=== PATIENT | female | born 1985 | race Caucasian/White ===

== ENCOUNTER 2019-09-05 00:15 | Outpatient (CLI) | payer OTHER, SELFPAY ==
[2019-09-05 16:10] LABS: SARS-CoV-2 RNA PCR Negative
== END 2019-09-05 00:16 | disposition home or self-care (01) ==
LOC: ANHCOVIDDT 00:15
PROVIDERS: PCP Family Medicine; Visit Provider Obstetrics & Gynecology
DX: Z01.818 Encounter for other preprocedural examination (principal); Z11.59 Encounter for screening for other viral diseases
CPT/HCPCS: 87635; C9803; U0003

== ENCOUNTER 2019-09-07 01:35 | Day surgery (SDC) | payer OTHER, SELFPAY ==
[2019-08-29 16:38] VITALS: BMI 26.4
[2019-09-07] VITALS (8 sets, daily range): BP systolic 101–119; BP diastolic 62–76; PULSE 59–88; RESP 12–17; TEMP 36.1–36.6; O2SAT 100
[2019-09-07] MEDS: LACTATED RINGERS 1,000 ML 30 ML IV CONT ×2 (10:00→13:19)
--- NOTE | 2019-09-07 10:26 | WPDANESEPP ---
Anes - Eval Pre Procedure Procedure: Operation Date: 09/07/19 12:00 Proposed Procedures p Laparoscopic Bilateral Tubal Sterilization with Fallopian Rings - Tom Son MD s Hysteroscopy Dilation and Curettage, Novasure Ablation - Tom Son MD Date/Time: 09/07/19 10:26 Pre Op Diagnosis: irreg bleeding, desires sterilization Patient Data Age: 34 Gender: F Height: 5 ft 3 in Weight: 66.4 kg Last Vital Signs Temp 97.8 F 09/07/19 10:16 Pulse 67 09/07/19 10:16 Resp 16 09/07/19 10:16 BP 108/68 09/07/19 10:16 Pulse Ox 100 09/07/19 10:16 Allergies Allergy/AdvReac Type Severity Reaction Status Date / Time poison valentina extract Allergy Intermediate RASH,SWELLI Verified 09/07/19 09:45 NG latex Allergy Unknown local Verified 09/07/19 09:45 irritation BEE STINGS Allergy Severe DIFFICULTY Uncoded 09/07/19 09:45 BREATHING Home Medications Medication Instructions Recorded Confirmed Type Stool Softener 50 mg PO DAILY #30 cap 04/03/19 09/07/19 Rx melatonin 5 mg PO HS PRN 08/29/19 09/07/19 History phentermine 37.5 mg PO DAILY 08/29/19 09/07/19 History Patient hx anesthesia problems: none Family hx anesthesia problems: none PMFSH Past Medical History Medical History Atopic dermatitis Surgical History Surgical History (Updated 09/07/19 @ 10:27 by Ady Wynn CRNA) Hx of LASIK Family History Family History Grandparent Diabetes mellitus Family history of cardiovascular disease Father Family history of multiple sclerosis Social History Social History Smoking status: Never smoker Alcohol intake: never Substance use: never Gender identity (if verbalized by the patient): Female Spiritual care concerns: No Exam Day of Procedure 09/07/19 10:26 Patient weight: normal Heart: regular rate and rhythm Lungs: clear to auscultation Airway: Mallampati scale class 1 Neurological: alert and oriented
--- NOTE | 2019-09-07 11:16 | SUR.PREOP ---
Resting without needs or complaints.
--- NOTE | 2019-09-07 11:20 | WPDANESEFPP ---
Anes - Eval Final PreProcedure Day of Procedure 09/07/19 11:20 Patient weight: overweight Heart: regular rate and rhythm Lungs: clear to auscultation Airway: Mallampati scale class 1 Neurological: alert and oriented Last oral intake: >/= 8 hours ASA classification: II Emergent: no Anesthetic plan: proceed Anesthesia type and monitoring: general ETT and standard monitoring Informed Consent: The patient's anesthetic plan and its attendant risks and benefits were discussed with the patient/family/POA. Questions were solicited and answers provided to the satisfaction of the patient/family/POA.
--- NOTE | 2019-09-07 11:21 | PM.IMHP ---
H&P: HPI History of Present Illness Chief complaint: irreg bleeding, desires sterilization Narrative: 34 y/o with heavy menses. She desires permanent contraception and desires surgical management of her problems. Review of Systems Review of Systems: All systems reviewed & are unremarkable except as noted in HPI and below PMFSH Past Medical History Medical History Atopic dermatitis Surgical History Surgical History Hx of LASIK Family History Family History Grandparent Diabetes mellitus Family history of cardiovascular disease Father Family history of multiple sclerosis Social History Social History Smoking status: Never smoker Alcohol intake: never Substance use: never Gender identity (if verbalized by the patient): Female Spiritual care concerns: No Meds Home Medications and Allergies Home Medications Medication Instructions Recorded Confirmed Type Stool Softener 50 mg PO DAILY #30 cap 04/03/19 09/07/19 Rx melatonin 5 mg PO HS PRN 08/29/19 09/07/19 History phentermine 37.5 mg PO DAILY 08/29/19 09/07/19 History Allergies Allergy/AdvReac Type Severity Reaction Status Date / Time poison valentina extract Allergy Intermediate RASH,SWELLI Verified 09/07/19 09:45 NG latex Allergy Unknown local Verified 09/07/19 09:45 irritation BEE STINGS Allergy Severe DIFFICULTY Uncoded 09/07/19 09:45 BREATHING Vital Signs Vital Signs - 24 hr 09/07/19 10:16 Temperature 36.6 C Pulse Rate 67 Respiratory Rate 16 Blood Pressure 108/68 Pulse Oximetry 100 Exam Const: Orientation/consciousness: patient oriented x3 Other: Well-developed, well-nourished female in no acute distress. Neck: Thyroid: thyroid normal Lymphatic: no lymphadenopathy noted (in neck, axilla or inguinal nodes) Resp: Effort & Inspection: normal respiratory effort Auscultation: clear to auscultation bilaterally Cardio: Rate: regular rate Rhythm: regular rhythm Heart sounds: S1 normal heart sound present and S2 normal heart sound present GI: Other: ABD: Soft, nontender, nondistended. No guarding or rebound tenderness. No hepatosplenomegaly. : General: Yes no CVA tenderness Other: External genitalia: normal female hair distribution, without lesion. Urethral meatus: no lesion, non prolapsed. Bladder: no mass, nontender Vagina: well-estrogenized, without lesion or discharge. No cystocele or rectocele. Cervix: no lesion or discharge. Uterus: small, anteverted, freely mobile, nontender Adnexa: no mass or tenderness. Anus/perineum: no lesions, nontender Back/Spine/Pelvis: Back: no CVA tenderness Skin: General skin exam: normal color and no rashes or lesions noted Neuro: General: patient oriented x3 Extrem: Other: Extremities: nontender with no edema Psych: Mental Status: mental status grossly normal Affect: normal affect Assessment and Plan Assessment and plan (1) Menorrhagia: Code(s): N92.0 - Excessive and frequent menstruation with regular cycle Status: Acute Assessment and Plan: I have offered her medical as well as surgical options to treat her problems. She does not desire any future childbearing. She understands there are temporary methods of contraception available to her. She understands that there are nonsurgical options as well as surgical options. She understands that tubal ligation will render her permanently sterile. She understands that there is a failure rate associated with tubal ligation, as well as an inherent ectopic gestation risk. Furthermore, she understands risks of surgery to include risks of anesthesia, risks of pain, infection, bleeding, blood products, thromboembolic phenomena and damage to adjacent structures such as bowel, bladder, u
--- NOTE | 2019-09-07 11:28 | SUR.PREOP ---
Up to bathroom.
[2019-09-07] MEDS: KETOROLAC 30 MG/ML VIAL (*BKC) IV PUSH (13:13)
--- NOTE | 2019-09-07 13:13 | PM.PROC ---
Procedure Note - Detailed Date of procedure: 09/07/19 Pre-op diagnosis: irreg bleeding, desires sterilization Menorrhagia Desired sterility Post-op diagnosis: same Procedure performed: Laparoscopic bilateral tubal ligation Hysteroscopy D&C Endometrial ablation Description of procedure: The patient was taken to the operating room where she was prepared and draped in the usual sterile fashion in the dorsal lithotomy position. The bladder was drained with a red rubber catheter. A sterile speculum was placed into the vagina. The anterior lip of the cervix was grasped with single-tooth tenaculum. The acorn uterine manipulator was placed. The speculum was withdrawn. Gloves were changed and attention was turned to the abdomen. An infraumbilical skin incision was made with the scalpel. The abdomen was tented and a 5mm bladeless trocar was advanced under direct laparoscopic visualization. Pneumoperitoneum was administered using carbon dioxide gas. A survey of the pelvis and abdomen revealed the findings noted above. A 2nd 8mm skin incision was made in the midline above the symphysis pubis. The 8mm bladeless trocar was advanced under direct laparoscopic visualization. The Falope ring applicator was advanced. The right fallopian tube was identified by following it out to the fimbriated end. It was then grasped in the midportion and the Falope ring was applied. The device was reloaded. The left fallopian tube was similarly identified. However, the application was unsuccessful, as the tube appeared to be just a little dilated. Therefore, the Kleppinger forceps were advanced and a segment of the midportion of the left fallopian tube was completely fulgurated. Hemostasis was excellent. Two mL of 1% lidocaine was infiltrated into the serosa of the proximal tubes for postoperative anesthesia. The ports were withdrawn and the gas was allowed to escape. The skin incisions were reapproximated using interrupted sutures of 4 0 Vicryl. Dermaflex was applied externally. Attention was then redirected to the vagina, where the acorn manipulator was withdrawn. The speculum was reintroduced. Ten mL of 1% lidocaine was administered in a paracervical block. The cervix was then gently dilated using Hegar dilators until an 8 mm dilator could be passed. Hysteroscopy was performed using sterile saline as a distention medium. Findings are as noted above. Sharp curettage was then performed, and endometrial curettings were collected on a Telfa pad and passed off to be sent to pathology. Finally, the the Novasure device was advanced and endometrial ablation commenced without difficulty. The device was withdrawn and a second look was taken using the hysteroscope. Excellent coverage of the endometrial cavity was noted. The tenaculum was removed. Hemostasis was excellent. Sponge, lap, needle and instrument counts were correct. The patient was awakened and taken to the recovery room in stable condition. I was present and scrubbed through the entire procedure. Implants: Falope ring to the right Fallopian tube. Anesthesia: GETA and local (1% lidocaine) Surgeon: Tom Son MD Estimated blood loss (mL): 10 Drains: No Packing: No Pathology: yes (Endometrial curettings) Complications: None Condition: stable Disposition: PACU Findings: The right upper quadrant anatomy was unremarkable. The vermiform appendix was unremarkable. The right ovary demonstrated a small, simple appearing cyst. The left fallopian tube appeared to be just a little dilated. Otherwise, the uterus, tubes, ovaries, anterior and posterior cul-de-sac, bilateral round ligaments on bilateral uterosacral ligaments were unremarkable. The uterus sounded to a depth of 7.5cm with a cervical length of 3cm, giving a subtracted uterine cavity length of 4.5cm. The uterine cavity width was 4.4cm as measured by the NovaSure device. The endometrial cavity was unremarkable and both tubal ostia were easily seen.
--- NOTE | 2019-09-07 13:21 | SUR.OPER ---
Scottasure settings- Length- 4.5 Width- 4.4 Power- 109 Time- 90 seconds. 250 NS in, 200 NS out
[2019-09-07] MEDS: SCOPOLAMINE 1.5 MG PATCH TRANSDERM (13:41)
== END 2019-09-07 15:20 | disposition home or self-care (01) ==
PROVIDERS: PCP Family Medicine; Visit Provider Obstetrics & Gynecology
PROC: (CPT 58671; principal; 2019-09-07 12:00)
PROC: 0U5B8ZZ Destruction of Endometrium, Via Natural or Artificial Opening Endoscopic (ICD-10-PCS; CPT 58563; 2019-09-07 12:00)
DX: N92.0 Excessive and frequent menstruation with regular cycle (principal); Z30.2 Encounter for sterilization
CPT/HCPCS: 58670; 58563; 88305; A4264; A9270; J0330; J1100; J1885; J2250; J2405; J2704; J3010; J7120

== ENCOUNTER 2020-03-01 09:10 | Outpatient (NON) | payer OTHER, SELFPAY ==
[2020-03-01 12:24] LABS: Influenza Control Positive
== END 2020-03-01 09:11 ==
LOC: ANHCOVIDDT 09:11
PROVIDERS: PCP Family Medicine; Visit Provider Family Medicine
DX: R05 Cough (principal)
CPT/HCPCS: 87804

== ENCOUNTER 2020-05-25 00:35 | Day surgery (SDC) | payer OTHER, SELFPAY ==
[2020-05-21 13:36] VITALS: BMI 28.3
[2020-05-25] VITALS (7 sets, daily range): BP systolic 119–149; BP diastolic 64–89; PULSE 76–120; RESP 14–16; TEMP 36.2–36.5; O2SAT 100; BMI 28.2
[2020-05-25] MEDS: LACTATED RINGERS 1,000 ML 30 ML IV CONT ×2 (06:42→08:39)
--- NOTE | 2020-05-25 07:05 | WPDANESEPPF ---
Anes - Initial Pre Proc Eval Procedure: Operation Date: 05/25/20 07:30 Proposed Procedures p Bilateral Breast Augmentation - Fredo Hodgson MD Date/Time: 05/25/20 07:05 Surgeon: Fredo Hodgson MD Pre Op Diagnosis: Micromastia, Excess Adipose Tissue Patient Data Age: 35 Gender: F Height: 5 ft 3 in Weight: 72.2 kg Last Vital Signs Temp 97.2 F L 05/25/20 06:45 Pulse 76 05/25/20 06:45 Resp 16 05/25/20 06:45 BP 119/64 05/25/20 06:45 Pulse Ox 100 05/25/20 06:45 Allergies Allergy/AdvReac Type Severity Reaction Status Date / Time poison valentina extract AdvReac Intermediate RASH,SWELLI Verified 05/25/20 06:29 NG BEE STINGS Allergy Severe DIFFICULTY Uncoded 05/25/20 06:29 BREATHING Home Medications Medication Instructions Recorded Confirmed Type Stool Softener 50 mg PO DAILY #30 cap 04/03/19 05/21/20 Rx melatonin 5 mg PO HS 08/29/19 05/25/20 History linaclotide 72 mcg capsule 72 mcg PO DAILY 01/25/20 05/25/20 History carisoprodol 350 mg tablet 350 mg PO TID PRN #21 tablet 05/20/20 05/21/20 Rx oxycodone-acetaminophen 5 mg-325 1 tablet PO Q6H PRN #15 tablet 05/20/20 05/21/20 Rx mg tablet cetirizine [Zyrtec] 10 mg PO DAILY PRN 05/21/20 05/25/20 History epinephrine [EpiPen 2-Lázaro] 0.3 mg IM ONCE PRN 05/21/20 05/21/20 History ondansetron HCl [Zofran] 4 mg PO Q8H PRN 05/21/20 05/21/20 History Patient hx anesthesia problems: none Family hx anesthesia problems: none PMFSH Past Medical History Medical History Atopic dermatitis Surgical History Surgical History H/O tubal ligation 2020 History of in vitro fertilization Hx of LASIK Family History Family History Grandparent Diabetes mellitus Family history of cardiovascular disease Father Family history of multiple sclerosis Social History Social History Smoking status: Never smoker Second hand tobacco smoke exposure: No Alcohol intake: current Drinks per week: 5 Alcohol use details: BEER/MIXED DRINKS/WINE Substance use: never Living arrangements: with family Gender identity (if verbalized by the patient): Female Spiritual care concerns: No Agree to blood products: Yes Anes - Eval Final PreProcedure Day of Procedure 05/25/20 07:05 Patient weight: overweight Heart: regular rate and rhythm Lungs: clear to auscultation Airway: Mallampati scale class II Neurological: alert and oriented Last oral intake: >/= 8 hours ASA classification: II Emergent: no Anesthetic plan: proceed Anesthesia type and monitoring: general LMA and standard monitoring Informed Consent: The patient's anesthetic plan and its attendant risks and benefits were discussed with the patient/family/POA. Questions were solicited and answers provided to the satisfaction of the patient/family/POA.
--- NOTE | 2020-05-25 07:11 | WPDHPUPDATE1 ---
History and Physical Update Update Date/Time: 05/25/20 07:11 History and Physical has been reviewed, including an updated exam of the patient. There are NO changes in the patient's condition. Risks, benefits, and alternatives have been discussed and questions answered. Patient agrees to proceed with procedure.
--- NOTE | 2020-05-25 07:18 | P.OP_ITS ---
Procedure Note - Detailed Date of procedure: 05/25/20 Pre-op diagnosis: Micromastia, Excess Adipose Tissue Post-op diagnosis: same Procedure performed: Bilateral Augmentation Mammaplasty Description of procedure: She is here today for bilateral breast augmentation. Previously and again today the risks, benefits, alternatives were discussed in extensive detail. I wanted her to be very realistic about the risks involved as well as expectations. We discussed aftercare and what to monitor for. Made sure answered all of her questions to her satisfaction today and consent was obtained. Marked in the preoperative holding area with their verification. The patient was taken to the operating room placed supine on the operating table. Anesthesia was provided by anesthesiology. A surgical time-out was taken. We cleansed the skin and 1% lidocaine and 0.25% Marcaine with epinephrine was used anesthetize as a field block. She was prepped and draped in a standard sterile fashion. Tegaderm nipple Hickey were placed. A 15 blade used to make an incision along the inframammary fold. Dissection was continued at 45 degree angle until the chest wall as identified. On the right I elevated pre-pectoral in a dual plane 2 fashion. I incised the pectoralis major along its inferior border and completely released the inferior border leaving the medial border intact. I created a subpectoral pocket in the appropriate dimensions based on our preoperative planning for the implant. I then copiously irrigated with saline solution and verified a strict hemostasis. Next the use a triple antibiotic and Betadine containing solution to irrigate the pocket. I washed my gloves with the triple antibiotic and Betadine solution. We washed the implant immediately upon opening it with this solution and only opened it when we needed it. I used implant funnel and no-touch technique. The implant was introduced into the pocket using the funnel. Having verified positioning of the implant this was closed using 2-0 Vicryl followed by 3-0 Frontier cryl in a running subcuticular 4-0 Monocryl followed by tissue glue. Fluffs, Shane wrap, and surgical bra were placed. Patient was awoke and taken to PACU without difficulty. All instrument sponge counts were correct at the end of the case. Anesthesia: GLMA Surgeon: Fredo Hodgson MD Estimated blood loss (mL): 10 Drains: No Packing: No Pathology: none sent Complications: No immediate complications Condition: stable Disposition: PACU Findings: Bilateral Natrelle Inspira SoftTouch Breast Implants 445cc Right dual plane 2. REF# [id number] Left dual plane 1. REF# [id number]
[2020-05-25] MEDS: ceFAZolin 2 GM/D5W 50 ML 2 GM/50 ML BAG IVPB (07:28)
[2020-05-25] MEDS: LIDO 1%/EPINEPHRINE 1:100,000 50 ML VIAL 30 ML INFILTRATE (08:18)
[2020-05-25] MEDS: BUPIVACAINE/EPINEPHRINE 0.25% 50 ML VIAL 30 ML INFILTRATE (08:19)
[2020-05-25] MEDS: fentaNYL CITRATE INJ (*CRX) 100 MCG/2 ML VIAL 25 MCG IV PUSH ×3 (08:57→09:17)
[2020-05-25] MEDS: oxyCODONE HCL (*CRX) 5 MG TAB IR PO (09:52)
== END 2020-05-25 10:44 | disposition home or self-care (01) ==
PROVIDERS: PCP Family Medicine; Visit Provider Surgery Plastic and Reconstructive Surgery
PROC: (CPT 19325; principal; 2020-05-25 07:30)
DX: Z41.1 Encounter for cosmetic surgery (principal); N64.82 Hypoplasia of breast; E65 Localized adiposity
CPT/HCPCS: 19325; A9270; J0690; J1580; J2250; J2405; J2704; J3010; J7120

== ENCOUNTER 2024-10-27 12:11 | Outpatient (CLI) | payer OTHER, SELFPAY ==
--- OUTSIDE RECORDS SUMMARY | 2024-10-27 12:17 | XMS_ITS | Encounter Summary ---
Author Organization [facility] Address [address] [place] [address] Phone Care Team Providers Care Industrial Technician Name Role Phone Rosanne Crisostomo DO Primary Care Provider + Cira Snyder NP Primary Care Provider + [phone] Encounter Details Date Type Department Care Team (Late st Contact Info) Description 07/30/2022 Orders Only [facility] Scanning, Provider Social History Tobacco Use Types Packs/Day Years Used Date Smoking Tobacco: Never AUDIT-C Answer Date Recorded Q1: How often do you have a drink containing alc ohol? 2-4 times a month 07/05/2021 Average Number of Drinks Not on file 022 Q3: How often do you have si x or more drinks on one occasion? 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 Gender Identity Female 02/18/2021 7:30 AM HIGH SCHOOL COMPUTER SCIENCE TEACHER Sexual Orientation Straight 02/18/2021 7: 30 AM HIGH SCHOOL COMPUTER SCIENCE TEACHER documented as of this encounter Plan of Treatment Not on file documented as of this encounter Procedures Procedure Name Priority Date/Time Associated Diagnosis Comments SCAN - RADIOLOGY/IMAGING 07/30/2022 documented in this encounter Results * SCAN - RADIOLOGY/IMAGING (07/30/2022) Anatomical Region Laterality Modality Other us Provider Scanning Edited Result - Final documented in this encounter Visit Diagnoses Not on filedocumented in this encounter Care Teams Industrial Technician Relationship Specialty Start Date End Date Rosanne Crisostomo DO [address] [place] [id number] PCP - General Family Medicine 02/18/21 01/19/23 Cira Snyder NP [address] [place] [phone] PCP - General Nurse Practitioner 01/20/23 documented as of this encounter
--- OUTSIDE RECORDS SUMMARY | 2024-10-27 12:17 | XMS_ITS | Encounter Summary ---
Author Organization [facility] Address [facility] [place] [address] Care Team Providers Care Qa Automation Architect Name Role Phone Cira Snyder Primary Care Provider Encounter Details Date Type Department Care Team (Late st Contact Info) Description 08/09/2022 MyCLast 2 Leftt Message Enc [facility] Family & Internal Medicine [address] [phone] Cira Snyder FNP [address] [place] [address] [id number] Vitamin D Social History Tobacco Use Types Packs/Day Years Used Date Smoking Tobacco: Never Smokeless Tobacco: Never Alcohol Use Standard Drinks/Week Comments Yes 0 (1 standard drink = 0.6 oz pur e alcohol) occasionally PHQ-2 Answer Date Recorded Patient Health Questionnaire-2 Score 2 07/22/2022 Comments No Sex and Gender Information Value Date Recorded Sex Assigned at Female 06/15/2023 3:55 PM BOILER MECHANIC Legal Sex Female 4:16 PM CDT Gender Identity Female 06/15/2023 3:55 PM BOILER MECHANIC Sexual Orientation Straight 06/15/2023 3: 55 PM BOILER MECHANIC COVID-19 Exposure Response Date Recorded In the last 10 days, have orlando kay been in contact with someone who was confirmed or suspected to have Coronavirus/COVID-19? No / Unsure 08/05/2022 7:36 AM CDT documented as of this encounter Functional Status * RETIRED Are you deaf or do you have serious difficulty hearing Answer Date of Assessment Author Status No 09/28/2021 3:25 PM CDT Activ e * RETIRED Are you blind or do you have serious difficulty seeing, even when wearing glasses? Answer Date of Assessment Author Status No 09/28/2021 3:25 PM CDT Activ e * Do you have serious difficulty walking or climbing stairs? Answer Date of Assessment Author Status No 09/28/2021 3:25 PM CDT Destiny Bliss RN Active * Do you have difficulty dressing or bathing? Answer Date of Assessment Author Status No 09/28/2021 3:25 PM CDT Destiny Bliss RN Active * Because of a physical, mental, or emotional condition, do you have difficulty doing errands alone such as visiting a doctor's office or shopping? Answer Date of Assessment Author Status No 09/28/2021 3:25 PM CDT Destiny Bliss RN Active documented as of this encounter Mental Status * Because of a physical, mental, or emotional condition, do you have serious difficulty concentrating, remembering, or making decisions? Answer Entry Date Author Status No 09/28/2021 3:25 PM CDT Destiny Bliss RN Active documented in this encounter Plan of Treatment Upcoming Encounters Date Type Department Care Team (Late st Contact Info) Description 04/04/2025 9:00 AM BOILER MECHANIC Office Visit [facility] Family & Internal Medicine - [address] [phone] Cira Snyder FNP [address] [place] [phone] documented as of this encounter Goals Goal Patient Goal Type Associated Problems Recent Progress Patient-Stated? Author Health - patient able to perform ADLs independently General No Louise Schmitt RN documented as of this encounter Visit Diagnoses Not on filedocumented in this encounter Additional Health Concerns Infection Onset Date Last Indicated Resolved Time COVID-19 Rule Out 05/31/2023 05/31/2023 05/31/2023 3:14 AM BOILER MECHANIC COVID-19 Confirmed 05/31/2023 05/31/2023 12:32 AM CDT Assessment Noted Time PHQ-9 Depression Total Score: 10 023 4:01 PM CDT documented as of this encounter Care Teams Qa Automation Architect Relationship Specialty Start Date End Date Cira Snyder FNP [address] [place] [phone] PCP - General 07/19/22 documented as of this encounter
--- OUTSIDE RECORDS SUMMARY | 2024-10-27 12:17 | XMS_ITS | Encounter Summary ---
Author Organization [facility] Address [facility] [place] [address] Care Team Providers Care Rn Hematology Name Role Phone Cira Snyder Primary Care Provider Encounter Details Date Type Department Care Team (Latest Contact Info) Description 03/18/2024 TCD Pharmat Message Enc [facility] Family & Internal Medicine [address] [phone] Cira Snyder FNP [facility] [place] [address] Adderall & progesterone Social History Tobacco Use Types Packs/Day Years Used Date Smoking Tobacco: Never Smokeless Tobacco: Never Alcohol Use Standard Drinks/Week Comments Yes 5 (1 standard drink = 0.6 oz pur e alcohol) occasionally PHQ-2 Answer Date Recorded Patient Health Questionnaire-2 Score 0 07/24/2023 Comments No Sex and Gender Information Value Date Recorded Sex Assigned at Female 06/15/2023 3:55 PM IN STORE BANKER Legal Sex Female 4:16 PM CDT Gender Identity Female 06/15/2023 3:55 PM IN STORE BANKER Sexual Orientation Straight 06/15/2023 3: 55 PM IN STORE BANKER documented as of this encounter Functional Status [...] st Contact Info) Description 04/04/2025 9:00 AM IN STORE BANKER Office Visit [facility] Family & Internal Medicine [address] [phone] Cira Snyder FNP [address] [place] [phone] documented as of this encounter Goals Goal Patient Goal Type Associated Problems Recent Progress Patient-Stated? Author Health - patient able to perform ADLs independently General No Louise Schmitt RN documented as of this encounter Visit Diagnoses Not on filedocumented in this encounter Additional Health Concerns Assessment Noted Time PHQ-9 Depression Total Score: 7 06/25/19 24 11:20 AM CDT documented as of this encounter Care Teams Rn Hematology Relationship Specialty Start Date End Date Cira Snyder FNP [address] [place] [phone] PCP - General 07/19/22 documented as of this encounter
--- OUTSIDE RECORDS SUMMARY | 2024-10-27 12:17 | XMS_ITS | Encounter Summary ---
Author Organization [facility] Address [address] [place] [address] Phone Care Team Providers Care Bog Cutter Name Role Phone Rosanne Crisostomo DO Primary Care Provider + Cira Snyder NP Primary Care Provider [phone] Encounter Details Date Type Department Care Team (Late st Contact Info) Description 08/27/2020 Orders Only [facility] Scanning, Provider Social History Tobacco Use Types Packs/Day Years Used Date Smoking Tobacco: Never Assessed Comments Unknown Sex and Gender Information Value Date Recorded Sex Assigned at Not on file Legal Sex Female 9:08 PM SHIP CEILER Gender Identity Female 02/18/2021 7:30 AM SHIP CEILER Sexual Orientation Straight 02/18/2021 7: 30 AM SHIP CEILER documented as of this encounter Plan of Treatment Not on file documented as of this encounter Procedures Procedure Name Priority Date/Time Associated Diagnosis Comments SCAN - LABS 08/27/2020 documented in this encounter Results * SCAN - LABS (08/27/2020) us Provider Scanning Edited Result - Final documented in this encounter Visit Diagnoses Not on filedocumented in this encounter Care Teams Bog Cutter Relationship Specialty Start Date End Date Rosanne Crisostomo DO [address] [place] [place] [id number] PCP - General Family Medicine 02/18/21 01/19/23 Cira Snyder NP [address] [place] [address] PCP - General Nurse Practitioner 01/20/23 documented as of this encounter
--- OUTSIDE RECORDS SUMMARY | 2024-10-27 12:17 | XMS_ITS | Encounter Summary ---
Author Organization [facility] Address [address] [place] [address] Phone Care Team Providers Care Ophthalmic Technician Name Role Phone Rosanne Crisostomo DO Primary Care Provider + Cira Snyder NP Primary Care Provider + [phone] Encounter Details Date Type Department Care Team (Late st Contact Info) Description 12/09/2022 Orders Only [facility] Scanning, Provider Social [...] on file Legal Sex Female 9:08 PM VP OF DIGITAL MARKETING Gender Identity Female 02/18/2021 7:30 AM VP OF DIGITAL MARKETING Sexual Orientation Straight 02/18/2021 7: 30 AM VP OF DIGITAL MARKETING documented as of this encounter Plan of Treatment Not on file documented as of this encounter Procedures Procedure Name Priority Date/Time Associated Diagnosis Comments SCAN - LABS 12/09/2022 documented in this encounter Results * SCAN - LABS (12/09/2022) us Provider Scanning Final Result documented in this encounter Visit Diagnoses Not on filedocumented in this encounter Care Teams Ophthalmic Technician Relationship Specialty Start Date End Date Rosanne Crisostomo DO [facility] [place] [address] PCP - General Family Medicine 02/18/21 01/19/23 Cira Snyder NP [address] [place] [address] PCP - General Nurse Practitioner 01/20/23 documented as of this encounter
--- OUTSIDE RECORDS SUMMARY | 2024-10-27 12:17 | XMS_ITS | Encounter Summary ---
Author Organization [facility] Address [facility] [place] [address] Care Team Providers Care Furniture Crater Name Role Phone Arnie Parson DO Primary Care Provider Rosanne Crisostomo DO Primary Care Provider Cira Snyder Primary Care Provider [phone] Encounter Details Date Type Department Care Team (Latest Contact Info) Description 02/16/2018 Abstract [facility] Annabel Eason MD Social History Tobacco Use Types Packs/Day Years Used Date Smoking Tobacco: Never Assessed Comments Unknown Sex and Gender Information Value Date Recorded Sex Assigned at Female 06/15/2023 3:55 PM BRAND DEVELOPMENT MANAGER Legal Sex Female 4:16 PM CDT Gender Identity Female 06/15/2023 3:55 PM BRAND DEVELOPMENT MANAGER Sexual Orientation Straight 06/15/2023 3: 55 PM BRAND DEVELOPMENT MANAGER documented as of this encounter Plan of Treatment Upcoming Encounters Date Type Department Care Team (Late st Contact Info) Description 04/04/2025 9:00 AM BRAND DEVELOPMENT MANAGER Office Visit [facility] Family & Internal Medicine [address] [phone] Cira Snyder FNP [address] [place] [address] documented as of this encounter Visit Diagnoses Not on filedocumented in this encounter Additional Health Concerns Infection Onset Date Last Indicated Resolved Time COVID-19 Rule Out 05/31/2023 05/31/2023 05/31/2023 3:14 AM BRAND DEVELOPMENT MANAGER COVID-19 Confirmed 05/31/2023 05/31/2023 12:32 AM CDT documented as of this encounter Care Teams Furniture Crater Relationship Specialty Start Date End Date Arnie Parson DO PCP - General 03/17/14 04/12/21 Rosanne Crisostomo DO PCP - General FAMILY PRACTICE 04/13/21 07/18/22 Cira Snyder FNP [address] [place] [address] PCP - General 07/19/22 documented as of this encounter
--- OUTSIDE RECORDS SUMMARY | 2024-10-27 12:17 | XMS_ITS | Encounter Summary ---
Author Organization [facility] Facility Care Team Providers Care Plant Health Manager Name Role Phone Rosanne Crisostomo DO Primary Care Provider + Cira Snyder NP Primary Care Provider [phone] Encounter Details Date Type Department Care Team (Latest Contact Info) Description 01/29/2016 Orders Only [facility] ProviderBlake MD [address] [place] [address] Social History Tobacco Use Types Packs/Day Years Used Date Smoking Tobacco: Never Assessed Comments Unknown Sex and Gender Information Value Date Recorded Sex Assigned at Not on file Legal Sex Female 9:08 PM RECONDITIONER Gender Identity Female 02/18/2021 7:30 AM RECONDITIONER Sexual Orientation Straight 02/18/2021 7: 30 AM RECONDITIONER documented as of this encounter Plan of Treatment Not on file documented as of this encounter Procedures Procedure Name Priority Date/Time Associated Diagnosis Comments PROCEDURE - RESULT 01/29/2016 12 :00 AM CDT documented in this encounter Results * PROCEDURE - RESULT (01/29/2016 12:00 AM CDT) Narrative 01/29/2016 12:00 AM CDT Ordered by an unspecified provider. Historical Provider Final Res ult documented in this encounter Visit Diagnoses Not on filedocumented in this encounter Care Teams Plant Health Manager Relationship Specialty Start Date End Date Rosanne Crisostomo DO [address] [place] [id number] PCP - General Family Medicine 02/18/21 01/19/23 Cira Snyder NP [address] [place] [address] PCP - General Nurse Practitioner 01/20/23 documented as of this encounter
--- OUTSIDE RECORDS SUMMARY | 2024-10-27 12:17 | XMS_ITS | Encounter Summary ---
Author Organization [facility] Address [facility] [place] [address] Care Team Providers Care Roll Tender Name Role Phone Cira Snyder Primary Care Provider [phone] Encounter Details Date Type Department Care Team (Late st Contact Info) Description 07/22/2022 [email or web address] Message Enc [facility] Family & Internal Medicine [address] [phone] Cira Snyder FNP [address] [place] [phone] [place] Social History Tobacco Use Types Packs/Day Years Used Date Smoking Tobacco: Never Smokeless Tobacco: Never Alcohol Use Standard Drinks/Week Comments Yes 0 (1 standard drink = 0.6 oz pur e alcohol) occasionally PHQ-2 Answer Date Recorded Patient Health Questionnaire-2 Score 2 07/22/2022 Comments No Sex and Gender Information Value Date Recorded Sex Assigned at Female 06/15/2023 3:55 PM SSRS REPORT DEVELOPER Legal Sex Female 4:16 PM CDT Gender Identity Female 06/15/2023 3:55 PM SSRS REPORT DEVELOPER Sexual Orientation Straight 06/15/2023 3: 55 PM SSRS REPORT DEVELOPER COVID-19 Exposure Response Date Recorded In the last 10 days, have yo u been in contact with someone who was confirmed or suspected to have Coronavirus/COVID-19? No / Unsure 07/22/2022 2:04 PM CDT documented as of this encounter Functional [...] PM CDT Destiny Bliss RN Active * Over the past 2 weeks, how often have you been bothered by any of the following problems? Question Answer Date of Assessment Author Status Little interest or pleasure in doing things More than half the days 07/22/2022 4:01 PM CDT Cira Snyder FNP Active Feeling down, depressed, or hopeless Not at all 07/22/2022 4:01 PM CDT Cira Snyder FNP Active Patient Health Questionnaire-2 Score 2 07/22/2022 4:01 PM CDT Cira Snyder FNP Active * Question Answer Date of Assessment Author Status Trouble falling or staying asleep, or sleeping too much Nearly every day 07/22/2022 4:01 PM CDT Cira Snyder FNP Active Feeling tired or having little energy More than half the days 07/22/2022 4:01 PM CDT Cira Snyder FNP Active Poor appetite or overeating Not at all 07/22/2022 4:01 PM CDT Cira Snyder FNP Active Feeling bad about yourself - or that you are a failure or have let yourself or your family down Not at all 07/22/2022 4:01 PM YADIRAT Cira Snyder FNP Active Trouble concentrating on things, such as reading the newspaper or watching television Nearly every day 07/22/2022 4:01 PM YADIRAT Cira Snyder FNP Active Moving or speaking so slowly that other people could have noticed? Or the opposite - being so fidgety or restless that you have been moving around a lot more than usual. Not at all 07/22/2022 4:01 PM YADIRAT Cira Snyder FNP Active Thoughts that you would be better off or hurting yourself in some way Not at all 07/22/2022 4:01 PM YADIRAT Cira Snyder FNP Active Patient Health Questionnaire-9 Score 10 07/22/2022 4:01 PM YADIRAT Cira Snyder FNP Active * If you checked off any problems on this questionnaire so far, Question Answer Date of Assessment Author Status How difficult have these problems made it for you to do your work, take care of things at home, or get along with other people? Not difficult at all 07/22/2022 4:01 PM CDT Cira Snyder FNP Active documented as of this encounter Mental Status * Because of a physical, mental, or emotional condition, do you have serious difficulty concentrating, remembering, or making decisions? Answer Entry Date Author Status No 09/28/2021 3:25 PM CDT Destiny Bliss RN Active documented in this encounter Progress Notes * JEREMIAH Miller - 07/23/2022 11:37 AM CDT Can we print the labs out. I cannot see them documented in this encounter Plan of Treatment Upcoming Encounters Date Type Department Care Team (Late st Contact Info) Description 04/04/2025 9:00 AM SSRS REPORT DEVELOPER Office Visit [facility] Family & Internal Medicine - [address] [phone] Cira Snyder FNP [address] [place] [address] documented as of this encounter Goals Goal Patient Goal Type Associated Problems Recent Progress Patient-Stated? Author Health - patient able to perform ADLs independently General Louise Kelly RN documented as of this encounter Visit Diagnoses Not on filedocumented in this encounter Additional Health Concerns Infection Onset Date Last Indicated Resolved Time COVID-19 Rule Out 05/31/2023 05/31/2023 05/31/2023 3:14 AM SSRS REPORT DEVELOPER COVID-19 Confirmed 05/31/2023 05/31/2023 12:32 AM CDT Assessment Noted Time PHQ-9 Depression Total Score: 10 023 4:01 PM CDT documented as of this encounter Care Teams Roll Tender Relationship Specialty Start Date End Date Cira Snyder FNP [facility] [place] [address] PCP - General 07/19/22 documented as of this encounter
--- OUTSIDE RECORDS SUMMARY | 2024-10-27 12:17 | XMS_ITS | Clinical Summary ---
Author Organization [facility] Address [address] [place] [address] Care Team Providers Care Pharmacist Intern Name Role Phone Cira Snyder JEREMIAH Primary Care Provider [phone] Allergies Active Allergy Reactions Criticality Noted Date Comments Bee Venom Itching,Rash,Shortne ss of Breath,Swelling High 02/18/1993 Latex Rash Medium 01/11/2019 Poison Britney Extract Contact Dermatitis,Itching,Rash,Swelling High 02/18/2021 Medications melatonin 10 MG tablet Take 1 tablet (10 mg total) by mouth nightly at bedtime. Active diphenhydrAMINE HCl, Sleep, 25 MG Tab Take 12.5 mg by mouth nightly as needed (sleep). Active dicyclomine (BENTYL) 10 MG capsuleIndication s:Sphincter of Oddi spasm Take 1 capsule (10 mg total) by mouth 4 (four) times daily before meals and nightly. 120 capsule 1 023 Active MAGNESIUM OR 200 mg. 024 Active hyoscyamine (LEVSIN/SL) 0.[address] 1 tablet (0.125 mg total) under the tongue every 4 (four) hours as needed for Cramping. Active hydrocortisone 2.5 % creamIndications: Hemorrhoids, unspecified hemorrhoid type Apply topically 2 (two) times daily. Do not use for more than 4 weeks continuously 28 g 024 Active escitalopram (LEXAPRO) 20 MG tabletIndications :Anxiety,Mild episode of recurrent major depressive disorder Take 1 tablet (20 mg total) by mouth nightly at bedtime. 90 tablet 3 024 Active ondansetron (ZOFRAN-ODT) 8 MG disintegrating tabletIndications :Chronic nausea Take 1 tablet (8 mg total) by mouth every 8 (eight) hours as needed for Nausea. 30 tablet 1 024 Active SEMAGLUTIDE-WEIGH T MANAGEMENT SC Inject 60 Units into the skin once a week. Active lubiprostone (AMITIZA) 8 MCG capsule Take 1 capsule (8 mcg total) by mouth daily with breakfast. Active Cetirizine HCl 10 MG Cap Take 10 mg by mouth every other day. Active triamcinolone (KENALOG) 0.025 % ointment Apply topically as needed. 025 Active progesterone (PROMETRIUM) 200 MG capsuleIndication s:Low serum progesterone Take 1 capsule (200 mg total) by mouth nightly at bedtime. 90 capsule 3 025 Active amphetamine-dextr oamphetamine XR (ADDERALL XR) 25 MG 24 hr capsuleIndication s:Attention deficit disorder (ADD) in adult Take 1 capsule (25 mg total) by mouth every morning. 30 capsule 025 Active busPIRone (BUSPAR) 10 MG tabletIndications :Anxiety TAKE 1/2 TO 1 TABLET BY MOUTH UP TO THREE TIMES DAILY NEEDED FOR ANXIETY 90 tablet 3 025 Active albuterol sulfate HFA 108 (90 Base) MCG/ACT inhalerIndication s:Cough Inhale 2 puffs into the lungs every 6 (six) hours as needed for Wheezing. 18 g 1 023 2024 Discontinued(P t. elected to discontinue med) progesterone (PROMETRIUM) 100 MG capsuleIndication s:Low serum progesterone Take 1 capsule (100 mg total) by mouth nightly at bedtime. 90 capsule 3 024 2024 Discontinued(R eorder) fluconazole (DIFLUCAN) 150 MG tabletIndications :Vaginal yeast infection Take one tablet now and you may repeat one tablet 72 hours for continued symptoms 2 tablet 1 024 2024 Discontinued(T herapy completed) busPIRone (BUSPAR) 10 MG tabletIndications :Anxiety Take 1/2 to 1 tab up to TID PRN for anxiety 90 tablet 3 024 2024 Discontinued scopolamine (TRANSDERM-SCOP) 1 MG/3DAYS patchIndications: Motion sickness, initial encounter Place 1 patch onto the skin every third day. 10 patch 025 2024 Discontinued amphetamine-dextr oamphetamine XR (ADDERALL XR) 25 MG 24 hr capsuleIndication s:Attention deficit disorder (ADD) in adult Take 1 capsule (25 mg total) by mouth every morning. 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/2022 Pain of upper abdomen 08/21/2022 Elevated liver enzymes 08/21/2022 Body mass index (BMI) of 22.0-22.9 in adult 07/12 Vitamin D deficiency 07/22/2022 Attention deficit disorder (ADD) in adult 2022 Family history of MS (multiple sclerosis) 2022 Chronic constipation 07/15/2021 Obesity 02/19/2021 Overview (09/30/2021): Added automatically from request for surgery [id number] Irregular menstrual cycle 10/30/2014 Ganglion cyst 06/29/2014 Anxiety 08/03/2013 Resolved Problems Problem Noted Date Diagnosed Date Resolved Date Concentration deficit 07/22/20222024 Acute cholecystitis due to biliary calculus 09/28/2021 08/21/2022 Acute cholecystitis 09/28/2021 07/23/19 Otitis externa of right ear 08/10/2014 07/22/2022 Foot contusion 03/17/2014 10/03/2024 Overview (09/30/2021): Transitioned From: Foot pain Encounters Date Type Department Care Team Description 10/03/2024 3:40 PM CDT Office Visit [facility] Family & Internal Medicine [address] [address] Cira Snyder FNP Attention Deficit Disorder (Patient presenting to the office today for routine ADD f/u reports no new concerns ) 10/03/2024 Travel from Last 3 Months Immunizations Immunization Administration Dates Next Due Influenza (Generic) 04/08/2016,01/25/2015 Influenza Adult (Generic) 02/02/2019,01/15/2017 Tdap (Generic) 02/02/2019,09/03/2016 Family History Medical History Relation Comments Asthma Brother Multiple Sclerosis Father Diabetes Maternal Grandfather Heart Disease Maternal Grandfather Asthma Mother Diabetes Sister Relation Status Comments Brother Alive Father Alive Maternal Grandfather Maternal Grandmother Alive Mother Alive Paternal Grandfather Paternal Grandmother Sister Alive Social History Tobacco Use Types Packs/Day Years Used Date Smoking Tobacco: Never Smokeless Tobacco: Never Alcohol Use Standard Drinks/Week Comments Yes 5 (1 standard drink = 0.6 oz pur e alcohol) occasionally PHQ-2 Answer Date Recorded Patient Health Questionnaire-2 Score 2 10/03/2024 Comments No Sex and Gender Information Value Date Recorded Sex Assigned at Female 06/15/2023 3:55 PM PHOTOGRAMMETRY AIRPLANE PILOT Legal Sex Female 4:16 PM CDT Gender Identity Female 06/15/2023 3:55 PM PHOTOGRAMMETRY AIRPLANE PILOT Sexual Orientation Straight 06/15/2023 3: 55 PM PHOTOGRAMMETRY AIRPLANE PILOT Last Filed Vital Signs Vital Sign Reading Time Taken Comments Blood Pressure 88/58 10/03/2024 4:02 PM CDT Pulse 75 10/03/2024 4:02 PM CDT Temperature 36.9 C (98.4 F) 10/03/2024 4:02 PM CDT Respiratory Rate 16 10/03/2024 4:02 PM CDT Oxygen Saturation 98% 10/03/2024 4:02 PM CDT Inhaled Oxygen Concentration - - Weight 61.2 kg (134 lb 14.4 oz) 10/03/2024 4:02 PM CDT Height 160 cm (5' 3) 10/03/2024 4:02 PM CDT Body Mass Index 23.9 10/03/2024 4:02 PM CDT Plan of Treatment Upcoming Encounters Date Type Department Care Team (Late st Contact Info) Description 04/04/2025 9:00 AM PHOTOGRAMMETRY AIRPLANE PILOT Office Visit [facility] Family & Internal Medicine - [address] [phone] Cira Snyder, OFFICE CLIN ASST [address] [place] [id number] Health Maintenance Due Date Last Done Comments Cervical Cancer Screening Pa p Smear (Age 30 to 64) Every 3 Years 1986 Annual Physical 1989 Hepatitis C 02/02/2004 Hepatitis B Vaccines (1 of 3 - 19+ 3-dose series) 2005 COVID-19 Vaccine ( - 2023-2 5 season) 2025 08/06/2020, 07/11/2020 Postponed from 12/13/2023 (Patient Refused) Cervical Cancer Screening Pa p with HPV Testing (Age 30 to 64) Every 5 Years 05/21/2028 05/21/2023 Cervical Cancer Screening with HPV 05/21/2028 DTaP, Tdap and Td Vaccines ( 3 - Td or Tdap) 02/02/2029 02/02/2019, 09/03/2016 PHQ-2 (Physician [place]) Completed 10/03/2024 HPV Vaccines Aged Out No longer eligi ble based on patient's age to complete this topic Meningococcal B Vaccine Aged Out No l onger eligible based on patient's age to complete this topic Meningococcal Vaccine Aged Out No zaheer negro eligible based on patient's age to complete this topic Pneumococcal Vaccine: Pediatrics (0 to 5 Years) and At-Risk Patients (6 to 49 Years) Aged Out No longer eligible b ased on patient's age to complete this topic RSV Immunizations Under 20 Months Aged Out No longer eligible b ased on patient's age to complete this topic Goals Goal Patient Goal Type Associated Problems Recent Progress Patient-Stated? Author Health - patient able to perform ADLs independently General No Louise Schmitt, personnel associate Procedure Name Priority Date/Time Associated Diagnosis Comments MG/PCCL UDS W CONF Routine 10/03/2024 3: 50 PM CDT Attention deficit disorder (ADD) in adult High risk medication use Encounter for long-term (current) drug use OUTSIDE CYTOPATH CERV/VAG INTERPRET (PAP) 05/21/2023 from Last 3 Months or Most Recently Relevant to Health Maintenance Results * (ABNORMAL) MG/PCCL UDS W CONF (10/03/2024 3:50 PM CDT) RESULT SUMMARY [facility] Comment: Prescribed Prescribed Not Prescribed Consistent Inconsistent Inconsistent Adderall(TM) Marijuana Metabolite PRESCRIBED DRUG 1 (U) Adderall(TM) [facility] FENTANYL SCREEN (U) NEGATIVE <0.5 ng/mL [facility] MORPHINE (U) NEGATIVE <10 ng/mL [facility] DESMETHYLTRAMADOL (U) NEGATIVE <100 ng/mL [facility] TRAMADOL (U) NEGATIVE <100 ng/mL [facility] TRAMADOL COMMENTS [facility] Comment:See LDT Notes AMPHETAMINES PM POSITIVE(A) <500 ng/mL [facility] AMPHETAMINES PM CONFIRMATION (U) 2,613(H) <250 ng/mL [facility] AMPHETAMINES PM MEDMATCH CONF (U) CONSISTENT [facility] METHAMPHETAMINE PM (U) NEGATIVE <250 ng/mL [facility] AMPHETAMINES COMMENT [facility] Comment:See Amphetamines Not es, LDT Notes BARBITURATES PM (U) NEGATIVE <300 ng/mL [facility] BENZODIAZEPINES PM (U) NEGATIVE <100 ng/mL [facility] COCAINE METABOLITE PM (U) NEGATIVE <150 ng/mL [facility] MARIJUANA METABOLITE PM (U) POSITIVE(A) <20 ng/mL [facility] MARIJUANA METABOLITE PM CONF (U) 10(H) <5 ng/mL [facility] MAR[place]NA METAB PM MM CONF (U) INCONSISTENT( A) [facility] MARIJUANA COMMENTS [facility] Comment:See Marijuana Notes, LDT Notes METHADONE PM (U) NEGATIVE <100 ng/mL [facility] OPIATES PM (U) NEGATIVE <100 ng/mL [facility] M[facility] OXYCODONE PM (U) NEGATIVE <100 ng/mL [facility] CREATININE RANDOM (U) 16.8(L) > or = 20.0 mg/dL [facility] SPECIFIC GRAVITY PM (U) 1.004 > or = 1.003 [facility] pH PM (U) 6.3 4.5 - 9.0 [facility] OXIDANT NEGATIVE <200 mcg/mL [facility] NOTE [facility] Comment: This drug testing is for medical treatment only. Analysis was performed as non-forensic testing and these results should be used only by healthcare providers to render diagnosis or treatment, or to monitor progress of medical conditions. Amphetamines Notes: Amphetamine detected is consistent with the use of the drug Amphetamine. Amphetamine can be a prescribed drug and is also a metabolite of methamphetamine. Marijuana Notes: Marijuana Metabolite detected is consistent with exposure to Marijuana (THC) and/or hemp derived products. Some jurisdictions do not include hemp within the definition of Marijuana. LDT Notes: Confirmation tests were developed and their analytical performance characteristics have been determined by [facility]. It has not been cleared or approved by the FDA. This assay has been validated pursuant to the CLIA regulations and is used for clinical purposes. medMATCH(R) enables providers to identify if drug use is consistent or inconsistent with a corresponding prescribed medication(s) list. Healthcare Providers needing Interpretation assistance, please contact us at [phone] ( ) M-F, 8am to 10pm EST URINE SPECIMEN / Unknown 10/03/2024 3:50 PM CDT 10/04/2024 12:15 PM CDT Narrative Resulting Agency Comment Performing Organization Information: Site ID: [id number] Name: [facility] Address: [facility] [place] [address] Director: Cullen Santos Site ID: [id number] Name: [facility] Address: [address] [place] [address] Director: Mena Conner MD us Cira Snyder OFFICE CLIN ASST URINE ORDERABLES Final Result [facility] [address] [facility] [place] [address], [place] [facility] [place] [facility] [address] [place] [address] * PAP SMEAR WITH HPV (05/21/2023) 05/21/2023 [facility] Scanned SCANNING Final Resu lt from Last 3 Months or Most Recently Relevant to Health Maintenance Insurance * Guarantor: Sheyla Ruiz Account Type Relation to Patient Date of Phone Billing Address Personal/Family Self 1985 [phone] (Work) [address] [place] [address] [facility] OPEN [facility]ESS [facility] Advance Directives * Full Code (Latest Code Status on File) Date Activated Date Inactivated Comments 09/28/2021 3:12 PM 09/30/2021 5:08 PM Care Teams Pharmacist Intern Relationship Specialty Start Date End Date Cira Snyder FNP [address] [place] [id number] PCP - General 07/19/22
--- OUTSIDE RECORDS SUMMARY | 2024-10-27 12:17 | XMS_ITS | Referral Summary ---
Author Organization [facility] Address [address] [place] [address] [place] [address] Care Team Providers Care Supervisor [place] Name Role Phone Cira Snyder NP Primary Care Provider [phone] Allergies Active Allergy Reactions Criticality Noted Date Comments Latex Rash Medium 01/11/2019 Poison Britney Extract Itching,Swelling,Rash,Blisters High 02/18/2021 Venom-Honey Bee Shortness of breath,Itching,Swelling,Rash High 02/18/1993 Medications melatonin 1 mg tablet,chewable 7 Active cetirizine HCl (ZYRTEC ORAL) QD Active UNABLE TO FIND Med Name: Vitamin D Supplement Active dextroamphetami ne-amphetamine XR (ADDERALL XR) 20 mg 24 hr capsule Take 1 capsule (20 mg total) by mouth activity director before breakfast 3 Active magnesium gluconate 200 mg tablet 1 tablet (200 mg total) 4 Active busPIRone (BUSPAR) 10 mg tablet Take 1/2 to 1 tab up to TID PRN for anxiety 4 Active escitalopram (LEXAPRO) 10 mg tablet Take 1 tablet (10 mg total) by mouth daily 4 Active hyoscyamine (LEVSIN) 0.[address] 1 tablet (0.125 mg total) under the tongue every 4 (four) hours as needed Active polyethylene glycol (GoLYTELY) 236-22.74-6.74 -5.86 gram solution Follow Instructions sent by Doctors office by mail 4000 mL 5 Active lubiprostone (AMITIZA) 8 mcg capsule Take 1 capsule (8 mcg total) by mouth 2 (two) times a day with meals Start with once daily, increase to 2 if no diarrhea; Take with meals 60 capsule 3 5 06/16/19 26 Active Active Problems Problem Noted Date Diagnosed Date Rectal bleeding 04/29/2024 Altered bowel habits 04/29/2024 Abdominal pain 08/31/2023 Elevated LFTs 01/20/2023 Epigastric pain 01/20/2023 Constipation 07/15/2021 Obesity 02/19/2021 Overview (02/19/2021): Added automatically from request for surgery [id number] Social History Tobacco Use Types Packs/Day Years Used Date Smoking Tobacco: Never Tobacco Cessation:Counseling Given: Not Answered AUDIT-C Answer Date Recorded Q1: How often do you have a drink containing alc ohol? 2-3 times a week 06/15/2024 Q2: How many drinks containi ng alcohol do you have on a typical day when you are drinking? 1 or 2 06/15/2024 Frequency of Binge Drinking Not on file 08/2024 Personal Safety Answer Date Recorded Have you ever been in or are you currently in a harmful physical or emotional relationship or is someone making you feel afraid or unsafe? Denies 06/15/2024 Comments No Sex and Gender Information Value Date Recorded Sex Assigned at Not on file Legal Sex Female 9:08 PM TRIMMER MACHINE OPERATOR Gender Identity Female 02/18/2021 7:30 AM TRIMMER MACHINE OPERATOR Sexual Orientation Straight 02/18/2021 7: 30 AM TRIMMER MACHINE OPERATOR Last Filed Vital Signs Vital Sign Reading Time Taken Comments Blood Pressure 119/77 06/15/2024 11:36 AM TRIMMER MACHINE OPERATOR Pulse 99 06/15/2024 11:36 AM TRIMMER MACHINE OPERATOR Temperature 36 C (96.8 F) 06/15/2024 11:16 AM TRIMMER MACHINE OPERATOR Respiratory Rate 18 06/15/2024 11:36 AM TRIMMER MACHINE OPERATOR Oxygen Saturation 100% 06/15/2024 11:36 AM TRIMMER MACHINE OPERATOR Inhaled Oxygen Concentration - - Weight 59 kg (130 lb) 06/15/2024 10:02 AM TRIMMER MACHINE OPERATOR Height 161.5 cm (5' 3.6) 06/15/2024 10:02 AM CS T Body Mass Index 22.6 06/15/2024 10:02 AM TRIMMER MACHINE OPERATOR Plan of Treatment Not on file Medical Devices Implanted Type Area Barrel Assembly Inspector Device Identifier Shelf Expiration Date Model / Serial / Lot Breast Bilateral: Breast [employer] B-4800 Orbera Intragastric System Balloon Nonsterile Latex Free - [id number] - [id number] Implanted:Qty: 1 on 03/13/2021 by Alfredo Sanchez MD at [facility] [employer] 04/30/2022 B-4800 / [id number] / Description:Orbera Intragast javier Balloon Insurance [facility] [address] [place] [address] [facility] [address] [facility] Advance Directives For more information, please contact: [phone] * Full Code (Latest Code Status on File) Date Activated Date Inactivated Comments 06/15/2024 9:56 AM 06/15/2024 3:52 PM * Full Code Date Activated Date Inactivated Comments 02/13/2023 9:05 AM 02/13/2023 2:40 PM * Full Code Date Activated Date Inactivated Comments 03/13/2021 10:04 AM 03/13/2021 4:52 PM Care Teams Supervisor [place] Relationship Specialty Start Date End Date Cira Snyder NP [address] [place] [id number] PCP - General Nurse Practitioner 01/20/23
--- OUTSIDE RECORDS SUMMARY | 2024-10-27 12:17 | XMS_ITS | Clinical Summary ---
Author Organization [facility] Address [address] [place] [address] [place] [address] Care Team Providers Care Rate Manager Name Role Phone Cira Snyder NP Primary Care Provider [phone] Allergies Active Allergy Reactions Criticality Noted Date [...] 1 capsule (20 mg total) by mouth alining inspector before breakfast 3 Active magnesium gluconate 200 [...] (02/19/2021): Added automatically from request for surgery [id number] Surgical History Surgery Date Site/Laterality Comments TUBAL LIGATION 04/13/2019 - 04/12/2020 ENDOMETRIAL ABLATION AUGMENTATION MAMMOPLASTY 04/13/2020 - 04/12/2021 UPPER GASTROINTESTINAL ENDOSCOPY 03/13/2021 gastric balloon placement CHOLECYSTECTOMY CYST REMOVAL Right wrist Medical History Medical History Date Comments Constipation Hemorrhoids Social History Tobacco Use Types Packs/Day Years [...] on file Legal Sex Female 9:08 PM STYLE ADVISOR Gender Identity Female 02/18/2021 7:30 AM STYLE ADVISOR Sexual Orientation Straight 02/18/2021 7: 30 AM STYLE ADVISOR Obstetrics History Last Filed Vital Signs Vital Sign Reading Time Taken Comments Blood Pressure 119/77 06/15/2024 11:36 AM STYLE ADVISOR Pulse 99 06/15/2024 11:36 AM STYLE ADVISOR Temperature 36 C (96.8 F) 06/15/2024 11:16 AM STYLE ADVISOR Respiratory Rate 18 06/15/2024 11:36 AM STYLE ADVISOR Oxygen Saturation 100% 06/15/2024 11:36 AM STYLE ADVISOR Inhaled Oxygen Concentration - - Weight 59 kg (130 lb) 06/15/2024 10:02 AM STYLE ADVISOR Height 161.5 cm (5' 3.6) 06/15/2024 10:02 AM CS T Body Mass Index 22.6 06/15/2024 10:02 AM STYLE ADVISOR Plan of Treatment Health Maintenance Due Date Last Done Comments Cervical Cancer Screening 1986 Depression Screening 1986 Hepatitis C Screening 1986 Varicella Vaccines (1 of 2 - 13+ 2-dose series) 1999 Hepatitis B Screening 02/02/2004 Regular Well Visit/Exam 18-64 02/02/2004 Covid-19 Vaccine (3 - 2023- season) 2023 08/06/2020, 07/11/2020 Influenza Vaccine (#1) 2024 9, 01/15/2017, 04/08/2016, Additional history exists DTaP/Tdap/Td Vaccine (3 - Td or Tdap) 02/02/2029 02/02/2019, 09/03/2016 HPV Vaccines Aged Out No longer eligi ble based on patient's age to complete this topic Pneumococcal vaccine <65 Aged Out No longer eligible based on patient's age to complete this topic Medical Devices Implanted Type Area Sanitation Director Device Identifier Shelf Expiration Date Model / Serial / Lot Breast Bilateral: Breast [employer] B-4800 Orbera Intragastric System Balloon Nonsterile Latex Free - [id number] - [id number] Implanted:Qty: 1 on 03/13/2021 by Alfredo Sanchez MD at [facility] [employer] 04/30/2022 B-4800 / [id number] / Description:Orbera Intragast javier Balloon Insurance [facility] [address] Member Subscriber Plan / Payer (Ef fective 2020-Present) Name:Sheyla Viramontes Member ID:[id number] Relation to Subscriber:Self Name:Sheyla Viramontes Subscriber ID:[id number] Payer ID:[id number] Type:statusboomLINK HMO/PPO Address: [address] [facility] [address] Member Subscriber Plan / Payer (Ef fective 2020-Present) Name:Sheyla Viramontes Member ID:[id number] Relation to Subscriber:Self Name:Sheyla Viramontes Subscriber ID:[id number] Payer ID:[id number] Type:statusboomLINK HMO/PPO Address: [address] Advance Directives For more information, please contact: [phone] * Full Code (Latest Code Status on File) Date Activated Date Inactivated Comments 06/15/2024 9:56 AM 06/15/2024 3:52 PM * Full Code Date Activated Date Inactivated Comments 02/13/2023 9:05 AM 02/13/2023 2:40 PM * Full Code Date Activated Date Inactivated Comments 03/13/2021 10:04 AM 03/13/2021 4:52 PM Care Teams Rate Manager Relationship Specialty Start Date End Date Cira Snyder NP [address] [place] [id number] PCP - General Nurse Practitioner 01/20/23
[2024-10-27 13:12] LABS: Hematocrit 43.9 % (37.0-47.0); Hemoglobin 14.6 g/dL (12.0-15.0); Mean Corpuscular HGB Conc 33.3 g/dl (32-36); Mean Corpuscular Hemoglobin 31.3 pg (26-34); Mean Corpuscular Volume 94.2 fl (80-100); Platelet Count Result 263 k/mm3 (150-375); Red Blood Count 4.66 M/mm3 (4.2-5.4); White Blood Count 6.0 K/mm3 (4.5-10.0)
[2024-10-27 13:37] LABS: Albumin Level 4.2 g/dL (3.5-5.1); Anion Gap 8 mmol/L (4-12); Blood Urea Nitrogen 14 mg/dL (7-17); Calcium 9.6 mg/dL (8.4-10.2); Carbon Dioxide 26 mmol/L (22-30); Chloride 103 mmol/L (98-107); Estimated Glomerular Filt Rate > 60; Glucose 84 mg/dL (65-110); Potassium 4.0 mmol/L (3.4-5.0); Sodium 137 mmol/L (137-145)
[2024-10-27 13:38] LABS: Iron 145 ug/dL (37-170)
[2024-10-27 13:45] LABS: Hemoglobin A1C 4.5 % (<5.7); Prealbumin 23.1 mg/dL (17.6-36.0)
== END 2024-10-27 12:12 | disposition home or self-care (01) ==
LOC: ANHLAB 12:15
PROVIDERS: PCP Nurse Practitioner Family; Visit Provider Surgery Plastic and Reconstructive Surgery
DX: R63.4 Abnormal weight loss (principal)
CPT/HCPCS: 36415; 80048; 82040; 83036; 83540; 84134; 85027

== ENCOUNTER 2024-11-29 00:31 | Day surgery (SDC) | payer OTHER, SELFPAY ==
[2024-11-17 15:14] VITALS: BMI 24.0
--- NOTE | 2024-11-17 15:42 | PC.NURSE ---
Report to the Outpatient Waiting Room, entrance under the green pavilion located off [facility], at time _0600AM on 11/29/24 . Planned Procedure Time: _0730AM .? Time changes happen often and if your time is changed the preop area will call you the afternoon before. - You and your visitor will be asked to self-screen and do not enter if you have any COVID symptoms. Please call surgeon if you need to reschedule. - A mask is optional within the hospital at this time. Patients may have clear liquids (water, carbonated beverages, clear teas, apple juice) until 3 hours prior to surgery with a maximum of 20 ounces. - No food from midnight until time of surgery and no smoking, or chewing tobacco (or any form of nicotine). No chewing gum, candy or mints. Take only the following medications with a SIP of water on the morning of surgery: _BUSPIRONE, ESCITALOPRAM DO NOT STOP ANY OF YOUR OTHER PRESCRIPTION MEDICATIONS PRIOR TO SURGERY EXCEPT THE FOLLOWING Hold all vitamins and supplements for 3 days per anesthesiologist. Medications to discontinue per physician RE: PROGESTERONE -HOLD DIRECTED BY YOUR PRESCRIBING DOCTOR Date to take last dose Please no make-up, nail uzbek, hairspray, perfume, deodorant, or body powder the day of surgery.? No jewelry (including any body piercings) or valuables the day of surgery, leave them at home.? Please take a shower or bath the night before, or the morning of, surgery with an antibacterial soap.? Wear comfortable, loose fitting clothing.? - Jewelry must be removed prior to entering the operating room.? Rings and piercings that are not removed may be cut off. - The hospital will not accept responsibility for valuables.? - Please leave all valuables, including medications, at home the day of surgery. If you are going home after surgery, a licensed canal driver must drive you home.? - NO public transportation without another adult if you receive anesthesia. - We recommend that an adult stay with you for 24 hours following discharge. - We also recommend that you do not drive, make important decision, drink alcoholic beverages, or take any drugs that were not prescribed by your health care provider for at least 24 hours after your discharge time. Follow any additional instructions given to you from your surgeon. Telephone instructions given to _JOHN and asked if any additional questions and then verbalized understanding. Patient advised to call surgeon office or pre surgery nurse liaison [phone] if any additional questions.
[2024-11-29] VITALS (15 sets, daily range): BP systolic 98–118; BP diastolic 56–73; PULSE 64–94; RESP 12–18; TEMP 36.4–37.1; O2SAT 95–100
--- OUTSIDE RECORDS SUMMARY | 2024-11-29 00:35 | XMS_ITS | Encounter Summary ---
Author Organization [facility] Address [facility] [place] [address] Care Team Providers Care Computer Equipment Installer Name Role Phone Cira Snyder Primary Care Provider [phone] Encounter Details Date Type Department Care Team (Latest Contact Info) Description 03/18/2024 DSO Interactivet Message Enc [facility] Family & Internal Medicine [address] [address] Cira Snyder FNP [facility] [place] [address] Adderall & progesterone Social History Tobacco Use Types Packs/Day Years Used Date Smoking Tobacco: Never Smokeless Tobacco: Never Alcohol Use Standard Drinks/Week Comments Yes 5 (1 standard drink = 0.6 oz pur e alcohol) occasionally PHQ-2 Answer Date Recorded Patient Health Questionnaire-2 Score 0 07/24/2023 Comments No Sex and Gender Information Value Date Recorded Sex Assigned at Female 06/15/2023 3:55 PM EDGE GRINDER Legal Sex Female 4:16 PM CDT Gender Identity Female 06/15/2023 3:55 PM EDGE GRINDER Sexual Orientation Straight 06/15/2023 3: 55 PM EDGE GRINDER documented as of this encounter Functional Status [...] st Contact Info) Description 04/04/2025 9:00 AM EDGE GRINDER Office Visit [facility] Family & Internal Medicine [address] [phone] Cira Snyder FNP [address] [place] [address] documented as of this encounter Goals Goal [...] documented as of this encounter Care Teams Computer Equipment Installer Relationship Specialty Start Date End Date Cira Snyder FNP [address] [place] [address] PCP - General 07/19/22 documented as of this encounter
--- OUTSIDE RECORDS SUMMARY | 2024-11-29 00:35 | XMS_ITS | Encounter Summary ---
Author Organization [facility] Address [facility] [place] [address] Care Team Providers Care Poultry Cutter Name Role Phone Cira Snyder Primary Care Provider [phone] Encounter Details Date Type Department Care Team (Late st Contact Info) Description 08/09/2022 [employer]t Message Enc [facility] Medical Group Family & Internal Medicine [address] [phone] Cira Snyder FNP [address] [place] [address] [id number] Vitamin D Social History Tobacco Use Types Packs/Day Years Used Date Smoking Tobacco: Never Smokeless Tobacco: Never Alcohol Use Standard Drinks/Week Comments Yes 0 (1 standard drink = 0.6 oz pur e alcohol) occasionally PHQ-2 Answer Date Recorded Patient Health Questionnaire-2 Score 2 07/22/2022 Comments No Sex and Gender Information Value Date Recorded Sex Assigned at Female 06/15/2023 3:55 PM AUTOMOTIVE TIRE WORKER Legal Sex Female 4:16 PM CDT Gender Identity Female 06/15/2023 3:55 PM AUTOMOTIVE TIRE WORKER Sexual Orientation Straight 06/15/2023 3: 55 PM AUTOMOTIVE TIRE WORKER COVID-19 Exposure Response Date Recorded In the [...] st Contact Info) Description 04/04/2025 9:00 AM AUTOMOTIVE TIRE WORKER Office Visit [facility] Medical [facility] Family & Internal Medicine - [address] [phone] Cira Snyder FNP [address] [place] [address] documented as of this encounter Goals Goal Patient Goal Type Associated Problems Recent Progress Patient-Stated? Author Health - patient able to perform ADLs independently General No Louise Schmitt RN documented as of this encounter Visit Diagnoses Not on filedocumented in this encounter Additional Health Concerns Infection Onset Date Last Indicated Resolved Time COVID-19 Rule Out 05/31/2023 05/31/2023 05/31/2023 3:14 AM AUTOMOTIVE TIRE WORKER COVID-19 Confirmed 05/31/2023 05/31/2023 12:32 AM CDT Assessment Noted Time PHQ-9 Depression Total Score: 10 023 4:01 PM CDT documented as of this encounter Care Teams Poultry Cutter Relationship Specialty Start Date End Date Cira Snyder FNP [address] [place] [address] PCP - General 07/19/22 documented as of this encounter
--- OUTSIDE RECORDS SUMMARY | 2024-11-29 00:35 | XMS_ITS | Encounter Summary ---
Author Organization [facility] Address [facility] [place] [address] Care Team Providers Care Retail Banking Manager Name Role Phone Cira Snyder Primary Care Provider [phone] Encounter Details Date Type Department Care Team (Late st Contact Info) Description 11/08/2024 [employer] Message Enc [facility] Medical Group Family & Internal Medicine [address] [phone] Cira Snyder FNP [address] [place] [address] [phone] Surgery Social History Tobacco Use Types Packs/Day Years Used Date Smoking Tobacco: Never Smokeless Tobacco: Never Alcohol Use Standard Drinks/Week Comments Yes 5 (1 standard drink = 0.6 oz pur e alcohol) occasionally PHQ-2 Answer Date Recorded Patient Health Questionnaire-2 Score 2 10/03/2024 Comments No Sex and Gender Information Value Date Recorded Sex Assigned at Female 06/15/2023 3:55 PM GAS GOLF CART REPAIRER Legal Sex Female 4:16 PM CDT Gender Identity Female 06/15/2023 3:55 PM GAS GOLF CART REPAIRER Sexual Orientation Straight 06/15/2023 3: 55 PM GAS GOLF CART REPAIRER documented as of this encounter Functional Status [...] st Contact Info) Description 04/04/2025 9:00 AM GAS GOLF CART REPAIRER Office Visit [facility] Medical Group Family & Internal Medicine [address] [phone] Cira Snyder FNP [address] [place] [address] documented as of this encounter Goals Goal [...] documented as of this encounter Care Teams Retail Banking Manager Relationship Specialty Start Date End Date Cira Snyder FNP [address] [place] [address] PCP - General 07/19/22 documented as of this encounter
--- OUTSIDE RECORDS SUMMARY | 2024-11-29 00:35 | XMS_ITS | Encounter Summary ---
Author Organization [facility] [place] Address [facility] [place] [address] Care Team Providers Care Apple Picking Supervisor Name Role Phone Cira Snyder Primary Care Provider Encounter Details Date Type Department Care Team (Late st Contact Info) Description 07/22/2022 [place] Message Enc [facility] Family & Internal Medicine [address] [phone] Cira Snyder FNP [address] [place] [address] [phone] [employer] Social History Tobacco Use Types Packs/Day Years Used Date Smoking Tobacco: Never Smokeless Tobacco: Never Alcohol Use Standard Drinks/Week Comments Yes 0 (1 standard drink = 0.6 oz pur e alcohol) occasionally PHQ-2 Answer Date Recorded Patient Health Questionnaire-2 Score 2 07/22/2022 Comments No Sex and Gender Information Value Date Recorded Sex Assigned at Female 06/15/2023 3:55 PM TEASEL GIG OPERATOR Legal Sex Female 4:16 PM CDT Gender Identity Female 06/15/2023 3:55 PM TEASEL GIG OPERATOR Sexual Orientation Straight 06/15/2023 3: 55 PM TEASEL GIG OPERATOR COVID-19 Exposure Response Date Recorded In the [...] st Contact Info) Description 04/04/2025 9:00 AM TEASEL GIG OPERATOR Office Visit [facility] Family & Internal Medicine - [address] [phone] Cira Snyder FNP [address] [place] [address] documented as of this encounter Goals Goal Patient Goal Type Associated Problems Recent Progress Patient-Stated? Author Health - patient able to perform ADLs independently General Louise Kelly RN documented as of this encounter Visit Diagnoses Not on filedocumented in this encounter Additional Health Concerns Infection Onset Date Last Indicated Resolved Time COVID-19 Rule Out 05/31/2023 05/31/2023 05/31/2023 3:14 AM TEASEL GIG OPERATOR COVID-19 Confirmed 05/31/2023 05/31/2023 12:32 AM CDT Assessment Noted Time PHQ-9 Depression Total Score: 10 023 4:01 PM CDT documented as of this encounter Care Teams Apple Picking Supervisor Relationship Specialty Start Date End Date Cira Snyder FNP [facility] [place] [address] PCP - General 07/19/22 documented as of this encounter
--- OUTSIDE RECORDS SUMMARY | 2024-11-29 00:35 | XMS_ITS | Encounter Summary ---
Author Organization [facility] Address [address] [place] [address] Phone Care Team Providers Care Plow Mechanic Name Role Phone Rosanne Crisostomo DO Primary Care Provider + Cira Snyder NP Primary Care Provider + [phone] Encounter Details Date Type Department Care Team [...] on file Legal Sex Female 9:08 PM HYDRAULIC BLOCKER Gender Identity Female 02/18/2021 7:30 AM HYDRAULIC BLOCKER Sexual Orientation Straight 02/18/2021 7: 30 AM HYDRAULIC BLOCKER documented as of this encounter Plan of Treatment Not on file documented as of this encounter Procedures Procedure Name Priority Date/Time Associated Diagnosis Comments SCAN - LABS 12/09/2022 documented in this encounter Results * SCAN - LABS (12/09/2022) us Provider Scanning Final Result documented in this encounter Visit Diagnoses Not on filedocumented in this encounter Care Teams Plow Mechanic Relationship Specialty Start Date End Date Rosanne Crisostomo DO [facility] [place] [address] PCP - General Family Medicine 02/18/21 01/19/23 Cira Snyder NP [address] [place] [address] PCP - General Nurse Practitioner 01/20/23 documented as of this encounter
--- OUTSIDE RECORDS SUMMARY | 2024-11-29 00:35 | XMS_ITS | Encounter Summary ---
Author Organization [facility] Care Team Providers Care Chiropractor Sole Practitioner Name Role Phone Rosanne Crisostomo DO Primary Care Provider + Cira Snyder NP Primary Care Provider [phone] Encounter Details Date Type Department Care Team (Latest Contact Info) Description 01/29/2016 Orders Only [facility] ProviderBlake MD [address] [place] [address] Social History Tobacco Use Types Packs/Day Years Used Date Smoking Tobacco: Never Assessed Comments Unknown Sex and Gender Information Value Date Recorded Sex Assigned at Not on file Legal Sex Female 9:08 PM MANAGER ANALYSIS Gender Identity Female 02/18/2021 7:30 AM MANAGER ANALYSIS Sexual Orientation Straight 02/18/2021 7: 30 AM MANAGER ANALYSIS documented as of this encounter Plan of [...] on filedocumented in this encounter Care Teams Chiropractor Sole Practitioner Relationship Specialty Start Date End Date Rosanne Crisostomo DO [address] [place] [address] [phone] PCP - General Family Medicine 02/18/21 01/19/23 Cira Snyder NP [address] [place] [address] PCP - General Nurse Practitioner 01/20/23 documented as of this encounter
--- OUTSIDE RECORDS SUMMARY | 2024-11-29 00:35 | XMS_ITS | Encounter Summary ---
Author Organization [facility] Address [facility] [place] [address] Care Team Providers Care Note Keeper Name Role Phone Arnie Parson DO Primary Care Provider [phone] Rosanne Crisostomo DO Primary Care Provider Cira Snyder Primary Care Provider [phone] Encounter Details Date Type Department Care Team (Latest Contact Info) Description 02/16/2018 Abstract [facility] Annabel Eason MD Social History Tobacco Use Types Packs/Day Years Used Date Smoking Tobacco: Never Assessed Comments Unknown Sex and Gender Information Value Date Recorded Sex Assigned at Female 06/15/2023 3:55 PM ORAL COMMUNICATION INSTRUCTOR Legal Sex Female 4:16 PM CDT Gender Identity Female 06/15/2023 3:55 PM ORAL COMMUNICATION INSTRUCTOR Sexual Orientation Straight 06/15/2023 3: 55 PM ORAL COMMUNICATION INSTRUCTOR documented as of this encounter Plan of Treatment Upcoming Encounters Date Type Department Care Team (Late st Contact Info) Description 04/04/2025 9:00 AM ORAL COMMUNICATION INSTRUCTOR Office Visit [facility] Family & Internal Medicine [address] [phone] Cira Snyder FNP [address] [place] [address] documented as of this encounter Visit Diagnoses Not on filedocumented in this encounter Additional Health Concerns Infection Onset Date Last Indicated Resolved Time COVID-19 Rule Out 05/31/2023 05/31/2023 05/31/2023 3:14 AM ORAL COMMUNICATION INSTRUCTOR COVID-19 Confirmed 05/31/2023 05/31/2023 12:32 AM CDT documented as of this encounter Care Teams Note Keeper Relationship Specialty Start Date End Date Arnie Parson DO PCP - General 03/17/14 04/12/21 Rosanne Crisostomo DO PCP - General FAMILY PRACTICE 04/13/21 07/18/22 Cira Snyder FNP [address] [place] [address] PCP - General 07/19/22 documented as of this encounter
--- OUTSIDE RECORDS SUMMARY | 2024-11-29 00:35 | XMS_ITS | Encounter Summary ---
Author Organization [facility] [place] Address [address] [place] [address] Phone Care Team Providers Care Professor Of Historical Theology Name Role Phone Rosanne Crisostomo DO Primary Care Provider + Cira Snyder NP Primary Care Provider + [phone] Encounter Details Date Type Department Care Team [...] on file Legal Sex Female 9:08 PM LABOR UNION BUSINESS REPRESENTATIVE Gender Identity Female 02/18/2021 7:30 AM LABOR UNION BUSINESS REPRESENTATIVE Sexual Orientation Straight 02/18/2021 7: 30 AM LABOR UNION BUSINESS REPRESENTATIVE documented as of this encounter Plan of [...] on filedocumented in this encounter Care Teams Professor Of Historical Theology Relationship Specialty Start Date End Date Rosanne Crisostomo DO [address] [place] [address] PCP - General Family Medicine 02/18/21 01/19/23 Cira Snyder NP [address] [place] [address] PCP - General Nurse Practitioner 01/20/23 documented as of this encounter
--- OUTSIDE RECORDS SUMMARY | 2024-11-29 00:35 | XMS_ITS | Clinical Summary ---
Author Organization [facility] Address [address] [place] [address] [place] [address] Care Team Providers Care Station Detective Name Role Phone Cira Snyder NP Primary Care Provider [phone] Allergies Active Allergy Reactions Criticality Noted Date [...] 1 capsule (20 mg total) by mouth club waiter/waitress before breakfast 3 Active magnesium gluconate 200 [...] (02/19/2021): Added automatically from request for surgery [id number] Surgical History Surgery Date Site/Laterality Comments TUBAL [...] on file Legal Sex Female 9:08 PM TEST DEVELOPMENT ENGINEER Gender Identity Female 02/18/2021 7:30 AM TEST DEVELOPMENT ENGINEER Sexual Orientation Straight 02/18/2021 7: 30 AM TEST DEVELOPMENT ENGINEER Obstetrics History Last Filed Vital Signs Vital Sign Reading Time Taken Comments Blood Pressure 119/77 06/15/2024 11:36 AM TEST DEVELOPMENT ENGINEER Pulse 99 06/15/2024 11:36 AM TEST DEVELOPMENT ENGINEER Temperature 36 C (96.8 F) 06/15/2024 11:16 AM TEST DEVELOPMENT ENGINEER Respiratory Rate 18 06/15/2024 11:36 AM TEST DEVELOPMENT ENGINEER Oxygen Saturation 100% 06/15/2024 11:36 AM TEST DEVELOPMENT ENGINEER Inhaled Oxygen Concentration - - Weight 59 kg (130 lb) 06/15/2024 10:02 AM TEST DEVELOPMENT ENGINEER Height 161.5 cm (5' 3.6) 06/15/2024 10:02 AM CS T Body Mass Index 22.6 06/15/2024 10:02 AM TEST DEVELOPMENT ENGINEER Plan of Treatment Health Maintenance Due Date Last Done Comments Cervical Cancer Screening 1986 Depression Screening 1986 Hepatitis C Screening 1986 Varicella Vaccines (1 of 2 - 13+ 2-dose series) 1999 Hepatitis B Screening 02/02/2004 Regular Well Visit/Exam 18-64 02/02/2004 HPV Vaccines (1 - 3-dose SCDM series) 2013 Covid-19 Vaccine (3 - season) 2023 08/06/2020, 07/11/2020 Influenza Vaccine (#1) 2024 9, 01/15/2017, 04/08/2016, Additional history exists DTaP/Tdap/Td Vaccine (3 - Td or Tdap) 02/02/2029 02/02/2019, 09/03/2016 Pneumococcal vaccine <65 Aged Out No longer eligible based on patient's age to complete this topic Medical Devices Implanted Type Area Rehabilitation Worker Device Identifier Shelf Expiration Date Model / Serial / Lot Breast Bilateral: Breast [employer] B-4800 Orbera Intragastric System Balloon Nonsterile Latex Free - [id number] - [id number] Implanted:Qty: 1 on 03/13/2021 by Alfredo Sanchez MD at [facility] [employer] 04/30/2022 B-4800 / [id number] / Description:Orbera Intragast javier Balloon Insurance [facility] [id number] Member Subscriber Plan / Payer (Ef fective 2020-Present) Name:Sheyla Viramontes Member ID:[id number] Relation to Subscriber:Self Name:Sheyla Viramontes Subscriber ID:[id number] Payer ID:[id number] Type:HEALTHLINK HMO/PPO Address: [employer]ALTH[employer] CLAIMS [address] [place] [id number] [facility] [id number] [facility] Advance Directives For more information, please contact: [phone] * Full Code (Latest Code Status on File) Date Activated Date Inactivated Comments 06/15/2024 9:56 AM 06/15/2024 3:52 PM * Full Code Date Activated Date Inactivated Comments 02/13/2023 9:05 AM 02/13/2023 2:40 PM * Full Code Date Activated Date Inactivated Comments 03/13/2021 10:04 AM 03/13/2021 4:52 PM Care Teams Station Detective Relationship Specialty Start Date End Date Cira Snyder NP [address] [place] [address] PCP - General Nurse Practitioner 01/20/23
--- OUTSIDE RECORDS SUMMARY | 2024-11-29 00:35 | XMS_ITS | Encounter Summary ---
Author Organization [facility] Address [address] [place] [address] Phone Care Team Providers Care Life Skills Instructor Name Role Phone Rosanne Crisostomo DO Primary Care Provider + Cira Snyder NP Primary Care Provider [phone] Encounter Details Date Type Department Care Team (Late st Contact Info) Description 08/27/2020 Orders Only [facility] Scanning, Provider Social History Tobacco Use Types Packs/Day Years Used Date Smoking Tobacco: Never Assessed Comments Unknown Sex and Gender Information Value Date Recorded Sex Assigned at Not on file Legal Sex Female 9:08 PM AMBULANCE DRIVER Gender Identity Female 02/18/2021 7:30 AM AMBULANCE DRIVER Sexual Orientation Straight 02/18/2021 7: 30 AM AMBULANCE DRIVER documented as of this encounter Plan of Treatment Not on file documented as of this encounter Procedures Procedure Name Priority Date/Time Associated Diagnosis Comments SCAN - LABS 08/27/2020 documented in this encounter Results * SCAN - LABS (08/27/2020) us Provider Scanning Edited Result - Final documented in this encounter Visit Diagnoses Not on filedocumented in this encounter Care Teams Life Skills Instructor Relationship Specialty Start Date End Date Rosanne Crisostomo DO [address] [place] [address] PCP - General Family Medicine 02/18/21 01/19/23 Cira Snyder NP [address] [place] [address] PCP - General Nurse Practitioner 01/20/23 documented as of this encounter
--- OUTSIDE RECORDS SUMMARY | 2024-11-29 00:35 | XMS_ITS | Clinical Summary ---
Author Organization [facility] Address [address] [place] [address] Care Team Providers [employer] Teacher Name Role Phone Cira Snyder JEREMIAH Primary Care Provider [phone] Allergies Active Allergy Reactions Criticality Noted Date [...] needed (sleep). Active dicyclomine (BENTYL) 10 MG capsuleIndications :Sphincter of Oddi spasm Take 1 capsule (10 mg total) by mouth 4 (four) times daily before meals and nightly. 120 capsule 1 08/22/19 23 Active MAGNESIUM OR 200 mg. 04/22/19 24 Active hyoscyamine (LEVSIN/SL) 0.[address] 1 tablet (0.125 mg total) under the tongue every 4 (four) hours as needed for Cramping. Active hydrocortisone 2.5 % creamIndications:H emorrhoids, unspecified hemorrhoid type Apply topically 2 (two) times daily. Do not use for more than 4 weeks continuously 28 g 02/19/20 24 Active escitalopram (LEXAPRO) 20 MG tabletIndications: Anxiety,Mild episode of recurrent major depressive disorder Take 1 tablet (20 mg total) by mouth nightly at bedtime. 90 tablet 3 03/08/20 24 Active ondansetron (ZOFRAN-ODT) 8 MG disintegrating tabletIndications: Chronic nausea Take 1 tablet (8 mg total) by mouth every 8 (eight) hours as needed for Nausea. 30 tablet 1 03/08/20 24 Active SEMAGLUTIDE-WEIGHT MANAGEMENT SC Inject 60 Units into the skin once a week. Active lubiprostone (AMITIZA) 8 MCG capsule Take 1 capsule (8 mcg total) by mouth daily with breakfast. Active Cetirizine HCl 10 MG Cap Take 10 mg by mouth every other day. Active triamcinolone (KENALOG) 0.025 % ointment Apply topically as needed. 06/08/19 25 Active progesterone (PROMETRIUM) 200 MG capsuleIndications :Low serum progesterone Take 1 capsule (200 mg total) by mouth nightly at bedtime. 90 capsule 3 10/04/19 25 Active busPIRone (BUSPAR) 10 MG tabletIndications: Anxiety TAKE 1/2 TO 1 TABLET BY MOUTH UP TO THREE TIMES DAILY NEEDED FOR ANXIETY 90 tablet 3 10/25/19 25 Active benzonatate (TESSALON PERLES) 100 MG capsuleIndications :Cough Take 1 capsule (100 mg total) by mouth 3 (three) times daily as needed for Cough. 30 capsule 11/05/19 25 Active amphetamine-dextro amphetamine XR (ADDERALL XR) 25 MG 24 hr capsuleIndications :Attention deficit disorder (ADD) in adult Take 1 capsule (25 mg total) by mouth every morning. 30 capsule 11/19/19 25 Active amphetamine-dextro amphetamine XR (ADDERALL XR) 25 MG 24 hr capsuleIndications :Attention deficit disorder (ADD) in adult Take 1 capsule (25 mg total) by mouth every morning. 30 capsule 10/20/19 25 025 Discontin ued(Reord er) Active Problems Problem Noted Date Diagnosed Date [...] (09/30/2021): Added automatically from request for surgery [id number] Irregular menstrual cycle 10/30/2014 Ganglion cyst 06/29/2014 Anxiety 08/03/2013 Resolved Problems Problem Noted Date Diagnosed Date Resolved Date Concentration deficit 07/22/20222024 Acute cholecystitis due to biliary calculus 09/28/2021 08/21/2022 Acute cholecystitis 09/28/2021 07/23/19 Otitis externa of right ear 08/10/2014 07/22/2022 Foot contusion 03/17/2014 10/03/2024 Overview (09/30/2021): Transitioned From: Foot pain Encounters Date Type Department Care Team Description 11/08/2024 MyChart Message Enc [facility] Family & Internal Medicine [address] [phone] Cira Snyder FNP Surgery 11/03/2024 MyChart Message Enc [facility] Family & Internal [address] [phone] Cira Snyder FNP Cough 10/27/2024 Scan [employer] INFO SRVCS Scanned, [facility] Lab (SCAN) 10/03/2024 3:40 PM CDT Office Visit [facility] Family & Internal Medicine [address] [phone] Claudio Cira, JEREMIAH Attention Deficit Disorder (Patient presenting to the [...] Sex Assigned at Female 06/15/2023 3:55 PM EXCELSIOR PICKER Legal Sex Female 4:16 PM CDT Gender Identity Female 06/15/2023 3:55 PM EXCELSIOR PICKER Sexual Orientation Straight 06/15/2023 3: 55 PM EXCELSIOR PICKER Last Filed Vital Signs Vital Sign Reading [...] st Contact Info) Description 04/04/2025 9:00 AM EXCELSIOR PICKER Office Visit [facility] Family & Internal Medicine - [address] [phone] Cira Snyder, GRADES 1 THRU 6 VISITING TEACHER [address] [place] [phone] Health Maintenance Due Date Last Done Comments Cervical Cancer Screening Pa p Smear (Age 30 to 64) Every 3 Years 1986 Annual Physical 1989 Hepatitis C 02/02/2004 Hepatitis B Vaccines (1 of 3 - 19+ 3-dose series) 2005 HPV Vaccines (1 - 3-dose SCD M series) 2013 COVID-19 Vaccine (3 - 2023-2 5 season) 2025 08/06/2020, 07/11/2020 Postponed from 12/13/2023 (Patient Refused) Cervical Cancer Screening Pa p with HPV Testing (Age 30 to 64) Every 5 Years 05/21/2028 05/21/2023 Cervical Cancer Screening with HPV 05/21/2028 DTaP, Tdap and Td Vaccines ( 3 - Td or Tdap) 02/02/2029 02/02/2019, 09/03/2016 PHQ-2 (Physician Mckenney) Completed 10/03/2024 Meningococcal B Vaccine Aged Out No l [...] perform ADLs independently General No Louise Schmitt, physical therapy professor Procedure Name Priority Date/Time Associated Diagnosis Comments OUTSIDE LAB (SCAN ORDER) 10/27/2024 OUTSIDE LAB (SCAN ORDER) 10/27/2024 MG/PCCL UDS W CONF Routine 10/03/2024 3: 50 PM CDT Attention deficit disorder (ADD) in adult High risk medication use Encounter for long-term (current) drug use OUTSIDE CYTOPATH CERV/VAG INTERPRET (PAP) 05/21/2023 from Last 3 Months or Most Recently Relevant to Health Maintenance Results * OUTSIDE LAB (SCAN ORDER) (10/27/2024) Only the most recent of2 resultswithin the time period is included. 10/27/2024 us [facility] Scanned SCANNING Final Resu lt * (ABNORMAL) MG/PCCL UDS W CONF (10/03/2024 3:50 PM CDT) RESULT SUMMARY [facility] Comment: Prescribed Prescribed Not Prescribed Consistent Inconsistent Inconsistent Adderall(TM) Marijuana Metabolite PRESCRIBED DRUG 1 (U) Adderall(TM) [facility] TROY FENTANYL SCREEN (U) NEGATIVE <0.5 ng/mL [facility] [...] (U) POSITIVE(A) <20 ng/mL [facility] WOOD SURIJT MARIJUANA METABOLITE PM CONF (U) 10(H) <5 ng/mL [facility] WOOD SURJIT MARIJUANA METAB PM MM CONF (U) INCONSISTENT( A) [facility] WOOD SURJIT MARIJUANA COMMENTS [facility] MELI EDDY Comment:See Marijuana Notes, LDT Notes METHADONE PM (U) NEGATIVE <100 ng/mL [facility] MELI DEGROOTE OPIATES PM (U) NEGATIVE <100 ng/mL [facility] MELI DEGROOTE OXYCODONE PM (U) NEGATIVE <100 ng/mL [facility] MELI DEGROOTE CREATININE RANDOM (U) 16.8(L) > or = 20.0 mg/dL [facility] MELI DEGROOTE SPECIFIC GRAVITY PM (U) 1.004 > or [...] analytical performance characteristics have been determined by [facility]. It has not been cleared or approved by the FDA. This assay has been validated pursuant to the CLIA regulations and is used for clinical purposes. medMATCH(R) enables providers to identify if drug use is consistent or inconsistent with a corresponding prescribed medication(s) list. Healthcare Providers needing Interpretation assistance, please contact us at [phone] ( ) M-F, 8am to 10pm EST URINE SPECIMEN / Unknown 10/03/2024 3:50 PM CDT 10/04/2024 12:15 PM CDT Narrative Resulting Agency Comment Performing Organization Information: Site ID: [id number] Name: [facility] Address: [address] [place] [address] Director: Cullen Santos Site ID: [id number] Name: [facility] Address: [address] [facility] [place] [address] Director: Mena Conner MD Cira Snyder GRADES 1 THRU 6 VISITING TEACHER URINE ORDERABLES Final Result [facility] [address] [address] [facility] [place] [address], [facility] [place] [address] [place] [address] * PAP SMEAR WITH HPV (05/21/2023) 05/21/2023 us [facility] Scanned SCANNING Final Resu lt from Last 3 Months or Most Recently Relevant to Health Maintenance Insurance * Guarantor: Sheyla Ruiz Account Type Relation to Patient Date of Phone Billing Address Personal/Family Self 1985 [phone] (Work) [address] [place] [address] [facility] [employer] OPEN ACCESS [facility] Advance Directives * Full Code (Latest Code Status on File) Date Activated Date Inactivated Comments 09/28/2021 3:12 PM 09/30/2021 5:08 PM Care Teams [employer] Physical Education Teacher Relationship Specialty Start Date End Date Cira Snyder FNP [address] [place] [phone] PCP - General 07/19/22
--- NOTE | 2024-11-29 06:20 | ECG_ITS ---
Test Date: 2024-11-29 07:00:14 Measurements Intervals [place] Rate: 62 P: 72 MN: 134 QRS: 87 QRSD: 76 T: 68 QT: 392 QTc: 401 Interpretive Statements SINUS RHYTHM BASELINE WANDER- I, II, AVR, AVL, AVF NORMAL ECG No previous ECG available for comparison Electronically Signed On 11-29-2024 07:45:03 CDT by Brandon Broussard D.O.
[2024-11-29] MEDS: LACTATED RINGERS 1,000 ML 30 ML IV CONT ×2 (06:30→12:30)
[2024-11-29] MEDS: TRANEXAMIC ACID 1,000MG/ISO100 1,000 MG/100 ML BAG 200 MG IVPB (06:32)
--- NOTE | 2024-11-29 07:01 | WPDHPUPDATE1 ---
History and Physical Update Update Date/Time: 11/29/24 07:01 History and Physical has been reviewed, including an updated exam of the patient. There are NO changes in the patient's condition. Risks, benefits, and alternatives have been discussed and questions answered. Patient agrees to proceed with procedure.
--- NOTE | 2024-11-29 07:02 | W.PM.PROC2 ---
Procedure Note - Detailed Date of Procedure 11/29/24 Pre-op Diagnosis skin laxity Post-op Diagnosis Same Procedure Performed Progressive tension abdominoplasty with suction lipectomy Right lateral thigh / banana roll suction lipectomy Surgeon Fredo Hodgson MD Anesthesia General Findings Tissue removed: 799 grams Lipoaspirate: 3,500 cc Description of Procedure They are here today for the above procedures. Previously and again today the risks, benefits, alternatives were discussed in extensive detail. I wanted them to be very realistic about the risks involved as well as expectations. We discussed aftercare and what to monitor for. I was very upfront about the risks of wound breakdown leading to loss of skin, open wounds, and need for additional procedures with permanent abdominal deformity. We discussed DVT/PE risks and management. Made sure answered all of their questions to their satisfaction today and consent was obtained. They were marked in the preoperative holding area with their verification. The patient was taken to the operating room. Anesthesia was provided by anesthesiology. A Pedraza catheter was started. Posterior Placed prone on the operating room table with care taken to protect from injury. Prepped and draped in a standard sterile fashion. A surgical time-out was taken. Stab incisions were made and tumescent solution was infiltrated. Once adequate time was allowed for hemostasis a 5mm basket and 4mm lindsey cannula were utilized to complete suction lipectomy based on S.A.F.E. technique in multiple planes and passes. Suction lipectomy continued to result based on pre-operative planning, intra-operative observation, and rolling pinch test which were in full agreement. This also included the right banan roll / lateral thigh. Anterior Patient was then placed supine with care taken to protect from injury. I placed the patient in a flexed position to verify the upper and lower markings would reach. I then placed supine. A thorough abdominal examination was completed. Stab incisions were made and tumescent solution infiltrated. Stab incisions were made and tumescent solution was infiltrated. Once adequate time was allowed for hemostasis a 5mm basket and 4mm lindsey cannula were utilized to complete suction lipectomy based on S.A.F.E. technique in multiple planes and passes. Suction lipectomy continued to result based on pre-operative planning, intra-operative observation, and rolling pinch test which were in full agreement. A 10 blade was used to make the upper incision. I continued dissection down to the level of fascia. Elevated just what was necessary for repair of the diastasis. I then again flexed the bed to verify the upper skin flap would reach the lower markings without tension. Once verified I placed her supine once again and a 10 blade used to make the lower incision. I elevated up to level the umbilicus and left the umbilicus intact on a well-vascularized stalk. The intervening tissue was removed. A 2 mm blunt cannula with 0.5% bupivacaine was injected deep to the fascia bilaterally. I plicated the diastasis recti using 0 PDO Stratafix barbed suture. This was in 2 separate layers using 2 separate sutures as well. After the patient was flexed (below) plicated the fascia with 0 PDO Stratafix in two separate layers. This was supraumbilical and infraumbilical. The patient was flexed and starting from superior to inferior began plication using 2-0 Vicryl to obliterate all space in a standard progressive tension fashion. At the umbilicus I marked out the location of the skin and inset this with 3-0 Monocryl and 4-0 Vicryl. I continued the remainder of the plication using 2-0 Vicryl until I reached my lower planned scar line. I trimmed any excess skin of the upper flap making sure this was a tension-free closure. 15 Edilson drain was placed. I then approximated using a 3 point suture with 2-0 Vicryl followed by 2-0 PDO Stratafix, 3-0 Stratafix ,running subcuticular 4-0 Monocryl, and tissue glue. Fluffs and an abdominal binder were placed. The patient was transferred to the bed in a flexed position. Awoken and taken to the PACU without difficulty. All instrument and sponge counts were correct at the end of the case. Estimated Blood Loss 75 Drains Yes (15 Edilson) Packing No Pathology None sent Complications No immediate complications Condition Stable Disposition PACU
--- NOTE | 2024-11-29 07:03 | WPDANESEPPF ---
Anes - Initial Pre Proc Eval Procedure: Operation Date: 11/29/24 07:30 Proposed Procedures p Abdominoplasty with Liposuction, - Fredo Hodgson MD s Liposuction to Right Lateral Thigh - Fredo Hodgson MD Date/Time: 11/29/24 07:03 Surgeon: Fredo Hodgson MD Pre Op Diagnosis: skin laxity Patient Data Age: 39 Gender: F Height: 1.6 m Weight: 64 kg Last Vital Signs Temp 36.4 C L 11/29/24 06:00 Pulse 80 11/29/24 06:00 Resp 18 11/29/24 06:00 BP 113/69 11/29/24 06:00 Pulse Ox 100 11/29/24 06:00 O2 Del Method Room Air 11/29/24 06:00 Allergies Allergy/AdvReac Type Severity Reaction Status Date / Time poison valentina extract AdvReac Intermediate RASH,SWELLI Verified 11/29/24 06:33 NG BEE STINGS Allergy Severe DIFFICULTY Uncoded 11/29/24 06:33 BREATHING Home Medications ?Medication ?Instructions ?Recorded ?Confirmed ?Type melatonin 5 mg tablet 5 mg PO HS 08/29/19 11/29/24 History cetirizine 10 mg tablet (Zyrtec) 10 mg PO DAILY PRN Congestion 05/21/20 11/29/24 History epinephrine 0.3 mg/0.3 mL 0.3 mg IM ONCE PRN Allergic 05/21/20 11/17/24 History injection, auto-injector (EpiPen Reaction 2-Lázaro) buspirone 10 mg tablet 10 mg PO BID 11/17/24 11/29/24 History dextroamphetamine-amphetamine ER 25 mg PO DAILY 11/17/24 11/29/24 History 25 mg 24hr capsule,extend release diphenhydramine HCl 12.5 mg/5 mL 12.5 mg PO HS 11/17/24 11/17/24 History oral liquid (Allergy) docusate sodium 100 mg capsule 100 mg PO DAILY 11/17/24 11/29/24 History (Colace) escitalopram oxalate 20 mg tablet 20 mg PO DAILY 11/17/24 11/29/24 History lubiprostone 8 mcg capsule 8 mcg PO DAILY 11/17/24 11/29/24 History magnesium 200 mg tablet 200 mg PO DAILY 11/17/24 11/29/24 History progesterone micronized 100 mg 200 mg PO DAILY 11/17/24 11/29/24 History capsule Laboratory Tests 11/29/24 06:12 Cotinine Pending Patient hx anesthesia problems: none Family hx anesthesia problems: none Results Review: All pre-operative results and documents have been reviewed as part of the pre-operative evaluation. [facility] Past Medical History Medical History Healthy adult Atopic dermatitis Surgical History Surgical History History of cholecystectomy 09/29/2021 History of endoscopy History of in vitro fertilization H/O tubal ligation 2019 Hx of LASIK Family History Family History Grandparent Diabetes mellitus Family history of cardiovascular disease Father Family history of multiple sclerosis Social History Social History Smoking status: Never smoker Second hand tobacco smoke exposure: No Alcohol intake: current Drinks per week: 5 Alcohol use details: BEER/MIXED DRINKS/WINE Substance use: never Substance use type: does not use Living arrangements: with family Occupation/Education: occupation Gender identity (if verbalized by the patient): Female Sexual Orientation (if Verbalized by the Patient): Straight or Heterosexual Spiritual care concerns: No Agree to blood products: Yes Anes - Eval Final PreProcedure Day of Procedure 11/29/24 07:03 Patient weight: normal Heart: regular rate and rhythm Lungs: clear to auscultation Airway: Mallampati scale class 1 Neurological: alert and oriented Last oral intake: >/= 8 hours ASA classification: I Emergent: no Anesthetic plan: proceed Anesthesia type and monitoring: general ETT and standard monitoring Results Review: All pre-operative results and documents have been reviewed as part of the pre-operative evaluation. Informed Consent: The patient's anesthetic plan and its attendant risks and benefits were discussed with the patient/family/POA. Questions were solicited and answers provided to the satisfaction of the patient/family/POA.
[2024-11-29] MEDS: SCOPOLAMINE 1 MG PATCH 1 PATCH TRANSDERM (07:20)
[2024-11-29 07:24] LABS: BEDSIDEPREGUCG Negative (Negative)
[2024-11-29] MEDS: LACTATED RINGERS IRRIG 1,000 ML, LIDOCAINE 1% LOCAL INJ 50 ML, EPINEPHrine HCL INJ 1 MG... INFILTRATE (07:26)
[2024-11-29] MEDS: ceFAZolin 2 GM in SODIUM CHLORIDE 0.9% IV 50 ML 100 ML IVPB (07:48)
[2024-11-29] MEDS: BUPIVACAINE/EPINEPHRINE 0.5% 30 ML VIAL 60 ML INFILTRATE (08:17)
[2024-11-29] MEDS: fentaNYL CITRATE INJ (*CRX) 100 MCG/2 ML VIAL 25 MCG IV PUSH ×4 (13:08→14:27)
[2024-11-29] MEDS: oxyCODONE HCL (*CRX) 5 MG TAB IR PO (14:25)
== END 2024-11-29 17:30 | disposition home or self-care (01) ==
PROVIDERS: Anesthesiology; PCP Nurse Practitioner Family; Visit Provider Surgery Plastic and Reconstructive Surgery
PROC: (CPT 15830; principal; 2024-11-29 07:30)
PROC: (CPT 15877; 2024-11-29 07:30)
DX: Z41.1 Encounter for cosmetic surgery (principal); L57.4 Cutis laxa senilis; L20.9 Atopic dermatitis, unspecified; Z79.1 Long term (current) use of non-steroidal anti-inflammatories (NSAID); Z98.890 Other specified postprocedural states; Z90.49 Acquired absence of other specified parts of digestive tract; Z98.51 Tubal ligation status; Z82.49 Family history of ischemic heart disease and other diseases of the circulatory system
CPT/HCPCS: 15830; 15847; 15877; 15879; 80307; 93005; J0690; A9270; J0166; J1100; J2003; J2004; J2250; J2371; J2405; J2704; J3010; J7120